=== PATIENT | female | born 1935 | race Caucasian/White ===

== ENCOUNTER → 2023-09-18 09:57 | Outpatient (REF) | payer MEDICARE, SELFPAY ==
[2023-09-18 10:14] LABS: % Basophils 0.4 % (0-2); % Eosinophils 1.9 % (0-6); % Immature Granulocytes 0.4 % (0-0.5); % Lymphocytes 21.4 % (20.5-51.1); % Monocytes 10.6 % (1.7-9.3); % Neutrophils 65.3 % (42.2-75.2); Absolute Eosinophils 0.1 10^3/uL (0-0.7); Absolute Lymphocytes 1.4 10^3/uL (1.2-3.4); Absolute Monocytes 0.7 10^3/uL (0.1-0.6); Absolute Neutrophils 4.4 10^3/uL (1.4-6.5); Hematocrit 33.5 % (37.0-47.0); Hemoglobin 10.8 g/dL (12.0-16.0); Mean Corp Hgb Conc. 32.2 g/dL (33.0-37.0); Mean Corpuscular Volume 96.3 fL (81.0-99.0); Mean Platelet Volume 9.6 fL (7.4-10.4); Platelet Count 197 10^3/uL (130-400); Red Blood Cell Count 3.48 10^6/uL (4.20-5.40); Red Cell Dist. Width 16.4 % (11.5-14.5); White Blood Cell Count 6.7 10^3/uL (4.8-10.8)
[2023-09-18 10:59] LABS: ALT (SGPT) 15 U/L (0-35); AST (SGOT) 20 U/L (14-36); Albumin 3.5 g/dl (3.5-5.0); Alkaline Phosphatase 35 U/L (38-126); Blood Urea Nitrogen 13 mg/dl (7-17); Calcium 9.2 mg/dl (8.4-10.2); Carbon Dioxide 32 mmol/L (22-30); Chloride 103 mmol/L (98-107); Glucose 126 mg/dl (70-99); Potassium 4.2 mmol/L (3.5-5.1); Sodium 136 mmol/L (135-145); Total Bilirubin 0.5 mg/dl (0.2-1.3); Total Protein 6.9 g/dl (6.3-8.2); eGFR > 60.00
[2023-09-19 14:09] LABS: Beta-2-Microglobulin 2.7 mg/L (<=3.0)
[2023-09-21 09:54] LABS: Albumin 3.76 g/dL (3.75-5.01); Alpha 1 Globulin 0.25 g/dL (0.19-0.46); Alpha 2 Globulin 0.68 g/dL (0.48-1.05); Free Kappa Light Chains,Quant 28.11 mg/L (3.30-19.40); Free Lambda Light Chains,Quant 4.28 mg/L (5.71-26.30); IgA 9 mg/dL (68-408); IgG 2001 mg/dL (768-1632); IgM <10 mg/dL (35-263); Immunofixation Electrophoresis IFE Done; Kappa/Lambda Fr Light Ratio 6.57 (0.26-1.65); Monoclonal Protein 1.88 g/dL (<=0.00); Total Protein-Electrophoresis 7.2 g/dL (6.3-8.2)
== END ==
LOC: OIDL 09:57
PROVIDERS: ATTENDING PHYSICIAN Internal Medicine Hematology & Oncology
DX: D64.9 Anemia, unspecified (principal)
CPT/HCPCS: 36415; 80053; 82232; 82784; 83521; 84155; 84165; 85025; 86334

== ENCOUNTER → 2023-10-03 15:21 | Outpatient (REF) | payer MEDICARE, SELFPAY | LOC: RAD 15:21 | PROVIDERS: ATTENDING PHYSICIAN Nurse Practitioner Family; FAMILY PHYSICIAN Physician Assistant Medical | DX: D64.9 Anemia, unspecified (principal); I82.401 Acute embolism and thrombosis of unspecified deep veins of right lower extremity; M80.00XA Age-related osteoporosis with current pathological fracture, unspecified site, initial encounter for fracture; C90.00 Multiple myeloma not having achieved remission | CPT/HCPCS: 71046 ==

== ENCOUNTER 2023-10-05 22:58 | Inpatient (IN) | payer MEDICARE, SELFPAY ==
[2023-10-05 20:48] VITALS: BP 120/70
[2023-10-05 21:02] VITALS: BP 152/75
[2023-10-05 21:21] LABS: % Basophils 0.2 % (0-2); % Immature Granulocytes 0.9 % (0-0.5); % Lymphocytes 2.6 % (20.5-51.1); % Monocytes 2.2 % (1.7-9.3); % Neutrophils 94.1 % (42.2-75.2); Absolute Immature Granulocytes 0.1 10^3/uL (0-0.05); Absolute Lymphocytes 0.4 10^3/uL (1.2-3.4); Absolute Monocytes 0.3 10^3/uL (0.1-0.6); Absolute Neutrophils 14.7 10^3/uL (1.4-6.5); Hematocrit 30.4 % (37.0-47.0); Hemoglobin 10.1 g/dL (12.0-16.0); Mean Corp Hgb Conc. 33.2 g/dL (33.0-37.0); Mean Corpuscular Hgb 30.4 pg (27.0-31.0); Mean Corpuscular Volume 91.6 fL (81.0-99.0); Mean Platelet Volume 10.2 fL (7.4-10.4); Nucleated Red Blood Cells % 0 %; Platelet Count 164 10^3/uL (130-400); Red Blood Cell Count 3.32 10^6/uL (4.20-5.40); Red Cell Dist. Width 15.8 % (11.5-14.5); White Blood Cell Count 15.6 10^3/uL (4.8-10.8)
--- NOTE | 2023-10-05 21:27 | ED.GENMED ---
History of Present Illness
General
Chief Complaint: Breathing Problem
Source: patient, records and family
Exam Limitations: none
Time Seen by Provider: 10/05/23 21:06
Nursing documentation reviewed up to this point in time: agreed with
Travel History
Have you had any contact with someone who has COVID-19?: No
Do you have any symptoms of coronavirus? Fever > 100 degrees, chills, cough, shortness of breath, sore throat, loss of taste or smell, muscle aches, or headache?: No
History of Present Illness
History of Present Illness:
88-year-old female history of multiple myeloma followed by [facility] COPD followed by pulmonary, DVT on Eliquis, presents with fatigue cough shortness of breath subacute onset had outpatient chest x-ray earlier in the week, not started
any antibiotics appears that the patient was not using her inhalers as prescribed, though she was compliant with her other meds feels generally fatigued with bodyaches, no nausea or vomiting no chest pain, noted to be hypoxic here which is a new
finding for her not on chronic oxygen
Past History
Past History
ED Past Medical History: Cancer, COPD, HTN, Hypercholesterolemia, NIDDM and Other (COPD, multiple myeloma)
ED Past Surgical History: Orthopedic and Other
Social History
Tobacco: Former smoker
Alcohol: None
Drug: None
Living: with family
Employment: Retired
Review of Systems
Review of Systems
All Other Systems: Not applicable
Constitutional: Reports fatigue; Denies fever
EENT: Reports no symptoms
Respiratory: Reports cough and trouble breathing; Denies hemoptysis
Cardiac: Reports no symptoms
ABD/GI: Reports no symptoms
: Reports no symptoms
Musculoskeletal: Reports no symptoms
Skin: Reports no symptoms
Neurological: Reports weakness
Endocrine: Reports no symptoms
Phy Exam
Physical Exam
Physical Exam:
Physical Exam
General: Dyspneic appearing female hypoxic
Neck: s no jaundice
Heart: Tachycardic
Lungs: Crackles on the left rhonchi on the right
Abdomen: Nontender
Neuro: alert and oriented. no focal neurological deficits
Skin: no rash
Psychiatric: well kept. interactive and cooperative
Extremities: no edema. no calf tenderness.
Scores
Heart Failure Risk
Heart Failure Risk Score: Not Applicable
Course
Orders/Labs/Results
Orders:
Orders
10/05/23 21:04
EKG [Electrocardiogram (*1)] Urgent
Reason for Study: Shortness of Breath
EKG- Treatment ONCE
10/05/23 21:06
CR Chest Portable - 1 View Urgent
Comment:
Reason For Exam: sob
Reason Study Needs to be Portable: Patient Unstable
10/05/23 21:13
Complete Blood Count/With Diff Urgent
Comprehensive Metabolic Panel Urgent
Prothrombin Time Urgent
Troponin I Urgent
10/05/23 21:24
Dexamethasone Sod Phosphate [Decadron] 10 mg IV NOW STA
Ipratropium/Albuterol Sulfate [Duoneb] 3 ml INH R NOW STA
10/05/23 21:30
Lactic Acid Q4H
Comment: CANCEL 2nd LACTIC ACID IF 1st LACTIC ACID IS LESS THAN 2
Blood Culture Q30M
RUDI Source: Blood/Venous
Specimen Description:
10/05/23 21:42
Piperacillin/Tazo 3.375 Gram [Zosyn] 3.375 gram in 50 ml IV NOW
10/05/23 22:00
Blood Culture Q30M
RUDI Source: Blood/Venous
Specimen Description:
10/06/23 01:30
Lactic Acid Q4H
Comment: CANCEL 2nd LACTIC ACID IF 1st LACTIC ACID IS LESS THAN 2
Abnormal Lab Results
10/05/23
21:13
WBC 15.6 H 10^3/uL
(4.8-10.8)
RBC 3.32 L 10^6/uL
(4.20-5.40)
Hgb 10.1 L g/dL
(12.0-16.0)
Hct 30.4 L %
(37.0-47.0)
RDW 15.8 H %
(11.5-14.5)
PT 19.8 H Sec
(11.4-14.6)
Sodium 125 L mmol/L
(135-145)
Chloride 90 L mmol/L
(98-107)
BUN 21 H mg/dl
(7-17)
Creatinine 0.5 L mg/dL
(0.6-1.0)
Glucose 178 H mg/dl
(70-99)
Alkaline Phosphatase 28 L U/L
(38-126)
Albumin 3.2 L g/dl
(3.5-5.0)
10/05/23 21:13
10/05/23 21:13
Vital Signs
Initial and Last Documented VS:
Initial Vital Signs
Pulse Resp BP Pulse Ox
107 24 120/70 84
10/05/23 20:48 10/05/23 20:48 10/05/23 20:48 10/05/23 20:48
Last Documented Vital Signs
Temp Pulse Resp BP Pulse Ox
98.7 F 107 24 120/70 92
10/05/23 21:03 10/05/23 20:48 10/05/23 20:48 10/05/23 20:48 10/05/23 21:05
MDM/Problems Addressed
Differential Diagnosis Includes:
Pneumonia pleural effusion heart failure PE disease progression
MDM/Problems Addressed:
Shortness of breath
Chronic conditions affecting care:
DVT
Chronic conditions affecting care: DM, COPD and Cancer
Acute Exacerbation and/or Progression of Chronic Illness: DM, COPD and Cancer
*Radiology
Radiology exam reviewed: radiology read reviewed
*Pulse Oximetry
Patient hypoxic: yes
*EKG
Interpreted by ED Provider?: Yes
Interpretation: abnormal
Comparison EKG: no comparison EKG present
Heart Rate: 78
Rate: normal
Rhythm: sinus
Ischemia: non-specific ST changes
*Addiction Psychiatrist Interpretation
Rate: normal
Interpretation: normal
Heart Rate: 78
Rhythm: sinus
*Critical Care Note
Total Time (30-74mins, 75-104mins- exclusive of procedures): 30
Data Reviewed
Review of Other/Old Records Reveals: Radiology Studies
Source: patient and family
Update Note
Update Note:
9:45 PM labs noted chest x-ray noted report noted will start on antibiotics, will require admission due to age severity of illness hypoxia worsening symptoms
ED Attending Note
-
Portions of this chart may have been created with voice recognition software.� Occasional wrong word or��sound alike� substitutions may have occurred due to the inherent limitations of voice recognition software.
Discharge Plan
Departure
Patient Disposition: Admit
Date of Disposition: 10/05/23
Time of Disposition: 21:43
Presentation/result/management discussed w/ accepting MD/DO: Hospitalist
Patient with high blood pressure during this ER visit?: No
Condition: Fair
Discharge Problem:
COPD (chronic obstructive pulmonary disease), Pneumonia
Prescriptions:
No Action
metformin 500 MG tablet
500 mg PO BID
anastrozole 1 MG tablet
1 mg PO HS
atorvastatin [Lipitor] 10 MG tablet
10 mg PO HS
cyanocobalamin (vitamin B-12) 1,000 MCG tablet
1,000 mcg PO SUTUTHSA
Trelegy Ellipta 1 EACH blister with device
1 ea IH DAILY
fish oil-dha-epa 1 EACH capsule
2 capsules PO DAILY
irbesartan 300 MG tablet
300 mg PO QPM Qty: 30 0RF
furosemide 20 MG tablet
20 mg PO DAILY Qty: 30 0RF
Rx Instructions:
take in AM
ibandronate 150 mg Tablet
150 mg PO QMONTH
Eliquis 5 mg Tablet
5 mg PO BID
metoprolol succinate 100 mg Capsule,Sprinkle,Er 24hr
100 mg PO DAILY
ICaps AREDS2 250 mg-200 unit -12.5 mg-1 mg Capsule
1 cap PO DAILY
albuterol sulfate 90 mcg/actuation Aero Powdr Breath Act W/Sensor
90 mcg INHALATION Q4H PRN (Reason: sob/wheezing)
PreserVision AREDS-2 250-90-40-1 mg Capsule
1 tab PO BID
acyclovir 400 mg Tablet
400 mg PO BID
dexamethasone 2 mg Tablet
10 mg PO .SUNDAY
iron
65 mg PO DAILY
Interventions
Interventions:
*Risk Screen - Suicide Last Done: 10/05/23 20:48
*General Assessment Last Done: 10/05/23 20:48
*Neglect/Abuse Screening Last Done: 10/05/23 21:05
*ED COVID-19 Vaccine History Last Done: 10/05/23 21:05
ED- Cardiac Assessment Last Done: 10/05/23 21:05
ED- Pulmonary Assessment Last Done: 10/05/23 21:05
Discharge Date and Time
Print Language: WELSH
[2023-10-05 21:29] LABS: PT 19.8 Sec (11.4-14.6)
[2023-10-05] MEDS: DECADRON 10 MG IV (21:34)
[2023-10-05] MEDS: DUONEB 3 ML INH (21:34)
[2023-10-05 21:36] LABS: ALT (SGPT) 14 U/L (0-35); AST (SGOT) 33 U/L (14-36); Albumin 3.2 g/dl (3.5-5.0); Alkaline Phosphatase 28 U/L (38-126); Blood Urea Nitrogen 21 mg/dl (7-17); Calcium 9.9 mg/dl (8.4-10.2); Carbon Dioxide 27 mmol/L (22-30); Chloride 90 mmol/L (98-107); Glucose 178 mg/dl (70-99); Potassium 3.8 mmol/L (3.5-5.1); Sodium 125 mmol/L (135-145); Total Bilirubin 1.2 mg/dl (0.2-1.3); Total Protein 6.6 g/dl (6.3-8.2); eGFR > 60.00
[2023-10-05 21:44] LABS: Troponin I 0.027 ng/ml
[2023-10-05] MEDS: ZOSYN 50 IV (21:49)
--- NOTE | 2023-10-05 21:52 | HPS.HSE ---
Family Physician
-
Family Physician: Ivana Clarke
Chief Complaint
-
Fatigue, cough, shortness of breath
History of Present Illness
88-year-old female complaining of fatigue, cough, shortness of breath for the past 3 days with pressure-like headache chills on and off. She reports having a chest x-ray on 10/03/2023 after her chemotherapy for multiple myeloma. She did not start
any antibiotics. Her symptoms became worse. She was noted to be hypoxic in the ER on room air. She has a history of multiple myeloma is followed by [facility], COPD, ASHLEY on CPAP, DVT on Eliquis, ex-smoker, sleep apnea on CPAP, HTN,
HLD, DM 2, breast cancer right breast with lumpectomy, Hx multiple myeloma, osteoarthritis, macular degeneration chronic back pain
Medical History
Past Medical History
Past Medical History: Reports Other
Additional Past Medical History:
COPD
ex-smoker
sleep apnea on CPAP
HTN
HLD
DM 2
breast cancer right breast with lumpectomy
Hx multiple myeloma Dx August 2022 on current chemotherapy follows with [facility]
osteoarthritis
macular degeneration
chronic back pain
Past Surgical History: Reports Other
Additional Past Surgical History:
Right lumpectomy 2018
Cataract extraction 2018
Left leg surgery x 3 secondary to trauma
Cyst removal left toe
Tonsillectomy
Left total hip replacement
Abdominal cyst removal 05/18/2021
Social History
Tobacco: Former Smoker (30 years half a pack a day unsure when patient quit)
Alcohol: Occasional
Personal: Single
Living: With Family
Employment: Retired
Family History
Family History: Other (Mother history of breast cancer CAD father unsure)
Allergies / Home Medications
Allergies reflects when Allergies were last updated in [facility].
Home Medications with original date entered in [facility]
Allergy/Medication List:
Allergies
Allergy/AdvReac Type Severity Reaction Status Date / Time
No Known Allergies Allergy Verified 10/05/23 20:48
Home Medications
anastrozole 1 mg tablet 1 mg PO HS Cancer 01/07/21
atorvastatin 10 mg tablet (Lipitor) 10 mg PO HS High cholesterol 01/07/21
metformin 500 mg tablet 500 mg PO BID Diabetes 01/07/21
cyanocobalamin (vitamin B-12) 1,000 mcg tablet 1,000 mcg PO SUTUTHSA Supplement 01/18/21
fish oil-dha-epa 1,200 mg-144 mg-216 mg capsule 2 capsules PO DAILY Supplement 09/18/21
fluticasone fur. 100 mcg-umeclid 62.5 mcg-vilant 25 mcg inhalat.powder (Trelegy Ellipta) 1 ea IH DAILY Lung/breathing issues 09/18/21
furosemide 20 mg tablet 20 mg PO DAILY #30 tabs 09/20/21
irbesartan 300 mg tablet 300 mg PO QPM #30 tabs 09/20/21
albuterol sulfate 90 mcg/actuation breath activated powder inhaler,sensor 90 mcg inhalation Q4H PRN sob/wheezing 03/01/23
apixaban 5 mg tablet (Eliquis) 5 mg PO BID 03/01/23
ibandronate 150 mg tablet 150 mg PO QMONTH 03/01/23
metoprolol succinate 100 mg capsule sprinkle, ext. release 24 hr 100 mg PO DAILY 03/01/23
vit C 250 mg-vit E 200 unit-zinc ox 12.5 dd-qbwyoz-grdudw-zeax capsule (ICaps AREDS2) 1 cap PO DAILY 03/01/23
vit C 250 mg-vit E 90 mg-zinc 40 mg-copper 1 xa-rhhdjp-bwxxiy capsule (PreserVision AREDS-2) 1 tab PO BID 03/02/23
acyclovir 400 mg tablet 400 mg PO BID 04/13/23
dexamethasone 2 mg tablet 10 mg PO .Sunday04/13/23
iron 65 mg PO DAILY 04/13/23
Calcium 600 with Vitamin D2 1 tab PO DAILY 10/05/23
Vitamin D3 5,000 units PO DAILY 10/05/23
bortezomib 3.5 mg injection powder for solution (Velcade) 3 mg IV QWEEK 10/05/23
denosumab 120 mg/1.7 mL (70 mg/mL) subcutaneous solution (Xgeva) 120 mg SC Q4W 10/05/23
Review of Systems
-
History Source: Patient and Family (Daughter and granddaughter at bedside)
A 12 point ROS was completed and negative except as noted: Yes
Constitutional: Reports Fatigue and Chills; Denies Fever
EENT: Denies Sore Throat or Runny Nose
Respiratory: Reports Cough and Trouble Breathing; Denies Hemoptysis
Cardiac: Denies Chest Pain, Diaphoresis, Palpitations or Syncope
Abdomen/GI: Denies Abdominal Pain, Nausea, Vomiting, Diarrhea or Constipated
: Denies Dysuria, Frequency, Flank Pain, Incontinence or Difficulty Voiding
Musculoskeletal: Denies Joint Pain or Edema
Skin: Denies Itching or Rash
Neurological: Reports Headache; Denies Dizzy or Weakness
Endocrine: Reports No Symptoms
Hematologic/Lymphatic: Reports No Symptoms
Psych: Reports Calm
Physical Exam
Vital Signs
Vital Signs
Temp Pulse Resp BP Pulse Ox
98.7 F 107 24 120/70 92
10/05/23 21:03 10/05/23 20:48 10/05/23 20:48 10/05/23 20:48 10/05/23 21:05
Physical Exam
General: Comfortable and Conversant; No Fever or Chills
HEENT: NormoCephalic, Anicteric, PERRLA, Grover Conjunctivae, No Ptosis and Oxygen (4 L nasal cannula)
Respiratory: Rhonchi (Left lower base to left mid lung, right CTA); No Wheezes
Cardiac: S1/S2 and Regular Rhythm; No Murmur, Rub, Gallop or Peripheral Edema
Breast: Deferred by me
GI: Soft, Non Tender, Non Distended and No Hepatosplenomegaly
Rectal: Deferred by Provider
Genito-urinary: Deferred by me
Musculoskeletal: No Clubbing, No Cyanosis and No Edema
Skin: Warm and Dry; No Rash or Jaundice
Neuro: AO x 3, No Motor Deficits, Nonfocal/grossly intact, Cranial Nerves Intact and No Sensory Deficits; No Slurred Speech or Facial Droop
Psych: Calm
Laboratory Results
-
10/05/23 21:13
10/05/23 21:13
Laboratory Results
PT 19.8 Sec (11.4-14.6) H 10/05/23 21:13
INR 1.70 10/05/23 21:13
Total Bilirubin 1.2 mg/dl (0.2-1.3) 10/05/23 21:13
AST 33 U/L (14-36) 10/05/23 21:13
ALT 14 U/L (0-35) 10/05/23 21:13
Alkaline Phosphatase 28 U/L (38-126) L 10/05/23 21:13
Troponin I 0.027 ng/ml 10/05/23 21:13
Data Reviewed
-
Diagnostic Radiology: Report Reviewed by me
Lab Data: Labs Reviewed by me
Impression/Plan
-
Impression/plan:
Admit to MedSurg
#Acute hypoxic respiratory insufficiency 2/2 left midlung pneumonia
84% RA, 92% 4 L nasal cannula
WBC 15.6 with left shift, HR 107, 98.7, 120/70
-Check influenza/COVID swab
-Continue Trelegy Ellipta or equivalent
-DuoNebs scheduled and as needed
-IV Zosyn
-Follow CBC, CMP, Pro-Petey
CXR: Opacity in the left midlung could represent pneumonia/pneumonitis
#COPD-no acute exacerbation
# Former smoker
1/2 pack a day x 30 years
#Hyponatremia hypovolemic
NA 125
-Check TSH with free T4 reflex
-Urine NA, urine Osmo, serum Osmo
-IV NSS 1 L then fluid restrict 1.2 L daily
#Multiple myeloma on current chemo Dx August 2022
#Anemia normocytic/chronic
Hgb 10.1, RBC 3.32, PLT 164
Follows with [facility]
Patient on chemo Velcade once a week last dose 10/03/2023
#DVT left leg hx July 2022
-Continue Eliquis 5 mg twice daily
INR 1.7
#ASHLEY on CPAP nasal
Patient unsure setting
#HTN-benign
120/70
-Continue irbesartan 300 mg every afternoon, metoprolol succinate 100 mg daily
-Hold Lasix 20 mg daily
#HLD
-Continue Lipitor 10 mg at bedtime
#DM2
-Accu-Cheks with SSI, check HgbA1c
-Hold metformin 500 mg twice daily
#Right breast CA with lumpectomy
-Continue anastrozole 1 mg p.o. at bedtime
#Osteoporosis Hx
Patient is on ibandronate 150 mg p.o. monthly on the
Continue calcium 600 vitamin D, continue vitamin D3
-Patient on Xgeva/denosumab once a month
DVT prophylaxis
Continue UNDERCOVER COP Eliquis
Full code
[2023-10-05 22:00] VITALS: BP 131/60
[2023-10-05 22:01] LABS: Lactic Acid 1.5 mmol/L (0.7-2.0)
--- NOTE | 2023-10-05 22:06 | W.PN.UPDATE ---
Addendum entered and electronically signed by Rogerio Miles MD 10/06/23 13:32:
Laboratory Tests
10/05/23
21:13
Procalcitonin 9.24 H*
Addendum entered and electronically signed by Rogerio Miles MD 10/05/23 22:33:
Correction:
Probably PNA @ lt mid to lower Lung
Associated with acute hypoxic RI and Leucocytosis
COPD HX : clinically not bronchospastic
- Agree with empiric IV Zosyn
<del>-</del> <del>Empiric</del> <del>PO</del> <del>Prednisone</del> <del>with</del> <del>rapid</del> <del>tapering</del> <del>course</del>
- DuoNebs qi and PRN
- O2 supplement - Goal POx > 93 %
- cont. all OP Meds for COPD
- pending PCT
Original Note:
Update Note
Progress Note Update
This note serves as an addendum to the H&P by emergency department VERONICA Hilda CISNEROS
HPI
88M HX COPD, Multiple myeloma, HTN, DVT on Eliquis seen at ER for evaluation of SoB for 1 week. Noted OP evaluation with CXR but not yet started on ABx. POx was 84% on RA, improved to low 90s on 4 L NC O2.
She recently had Velcade on 10/03/23Sunday ago for myeloma with [facility].
Admission CXR POS for Opacity in the left mid to lower lung which is new from 10/03/23
Associated Leucocytosis.
Pending PCT.
ROS:
Feverish but no documented fevr at home
Dry cough . No sputum production
Fatigue
Myalgias
PMHX
Cancer, COPD, HTN, Hypercholesterolemia, NIDDM and Other (COPD, multiple myeloma)
PSHx
Orthopedic and Other
Social History
Tobacco: Former smoker
Alcohol: None
Drug: None
Living: with family
Employment: Retired
Medications : Pending reconciliation
1. Anastrozole [Arimidex:] 1 mg PO HS 01/07/21.
2. Atorvastatin Calcium [Lipitor] 10 mg PO HS 01/07/21.
3. Metformin HCl 500 mg PO BID 01/07/21.
4. Vitamin D3 5,000 unit PO SUTUTHSA 01/07/21.
5. Vit A/Vit C/Vit E/Zinc/Copper [Preservision AREDS Softgel] 1
cap PO BID 01/11/21.
6. Cyanocobalamin [Vitamin B12:] 1,000 mcg PO DAILY 01/18/21.
7. Fish Oil/DHA/Epa [Fish Oil 1,200 mg Fish Oil] 2 capsules PO
DAILY 09/18/21.
8. Fluticasone/Umeclidin/Vilanter [Trelegy Ellipta 100-62.5-25] 1
each IH DAILY 09/18/21.
9. Metoprolol Succinate [Toprol Xl] 100 mg PO HS 09/18/21.
10.Acetaminophen [Tylenol :] 650 mg PO Q4HPRN PRN tablet
09/20/21.
11.Furosemide [Lasix:] 20 mg PO DAILY #30 tablet 09/20/21.
12.Irbesartan [Avapro:] 300 mg PO QPM #30 tablet 09/20/21.
13.Tramadol HCl [Ultram:] 50 mg PO Q6HPRN PRN #20 tablet 09/20/21.
Reviewed VS: afebrile ST 107 120/70 84% on RA --> 92% on 4 L NC
PE
Gen: Not toxic
HEENT: anicteric
Neck: supple
Lungs:Crackles on the left plus rhonchi on the right
Cor: tachycardic, S1 S2 , no murmur
Abdomen: soft benign exam
RN INTERNAL MEDICINE: alert and oriented. no focal neurological deficits
MS: no edema
Psych:well kept. Interactive and appropriate
Data
WCC 15.6
Hgb 10.8 - baseline 9s to 10s
INR 1.7
Na 125 - baseline 130
Cl 90
BUN 21
Cr 0.5
Pending Covid and Flu A & B
Pending LA
Pending PCT
BCx sent
10/05/23 CXR
Opacity in the left mid to lower lung which could represent pneumonia/pneumonitis most likely without significant change.
10/03/23 CXR
Some prominent pulmonary markings, predominantly interstitial noted which although may be chronic, these markings are more prominent in the left mid to lower lung and superimposed pneumonitis is possible.
Unfortunately, there are no prior chest radiographs in this facility for comparison.
Last hospitalist admission: 09/18/21 - 09/20/21
ASSESSMENT & PLAN
Pending Rx reconciliation
Probably PNA @ lt mid to lower Lung
Associated with acute hypoxic RI and Leucocytosis
COPD HX with mild flare
- Agree with empiric IV Zosyn
- Empiric PO Prednisone with rapid tapering course
- DuoNebs qi and PRN
- O2 supplement - Goal POx > 93 %
- cont. all OP Meds for COPD
- pending PCT
Acute hyponatremia
Suspect mildly hypovolemic due to dehydration
HX Hyponatremia
- likely a combination of SIADH plus poor oral intake, as well as Diuretics ( Frusemide ? )
- Gentle NS 40/H for 1 L
- FR 1.2 L
- Held Diuretics
- Trend Na in AM
Essential hypertension.
- Held Lasix
- f/u Na in AM
HX DVT on chr eliquis
HX Multiple myeloma on Anastrazole
HX T2DM: held Metformin, add ISS low
DVT Px: chr Eliquis
Code: Full
IP MS
[2023-10-05 22:33] LABS: COVID-19 Antigen Negative (Negative)
[2023-10-05 22:39] LABS: Procalcitonin 9.24 ng/ml (0.0-0.25)
[2023-10-05 23:00] VITALS: BP 123/65
[2023-10-06] VITALS (8 sets, daily range): BP systolic 128–144; BP diastolic 49–73; PULSE 67; O2SAT 91; BMI 28.5; BMI 27.4
[2023-10-06] MEDS: NSS 1000 IV (01:39)
--- NOTE | 2023-10-06 01:52 | PTCARENOTE ---
Pt admitted to floor from ED. AAOx3. VSS. 936-96% o 4L. Pt with no c/o. Oriented to room. Call soni within reach.
[2023-10-06] MEDS: ZOSYN 50 IV ×4 (05:18→22:08)
[2023-10-06 06:02] LABS: % Basophils 0.5 % (0-2); % Eosinophils 0.4 % (0-6); % Immature Granulocytes 1.8 % (0-0.5); % Lymphocytes 2.2 % (20.5-51.1); % Monocytes 1.8 % (1.7-9.3); % Neutrophils 93.3 % (42.2-75.2); Absolute Basophils 0.1 10^3/uL (0-0.2); Absolute Eosinophils 0.1 10^3/uL (0-0.7); Absolute Immature Granulocytes 0.3 10^3/uL (0-0.05); Absolute Lymphocytes 0.4 10^3/uL (1.2-3.4); Absolute Monocytes 0.3 10^3/uL (0.1-0.6); Absolute Neutrophils 15.9 10^3/uL (1.4-6.5); Hematocrit 26.8 % (37.0-47.0); Hemoglobin 9.3 g/dL (12.0-16.0); Mean Corp Hgb Conc. 34.7 g/dL (33.0-37.0); Mean Corpuscular Hgb 30.8 pg (27.0-31.0); Mean Corpuscular Volume 88.7 fL (81.0-99.0); Mean Platelet Volume 10.3 fL (7.4-10.4); Nucleated Red Blood Cells % 0 %; Platelet Count 149 10^3/uL (130-400); Red Blood Cell Count 3.02 10^6/uL (4.20-5.40)
[2023-10-06 06:11] LABS: Osmolality Serum 281 mOsm/kg (275-300)
[2023-10-06 06:18] LABS: ALT (SGPT) 12 U/L (0-35); AST (SGOT) 25 U/L (14-36); Albumin 2.8 g/dl (3.5-5.0); Alkaline Phosphatase 33 U/L (38-126); Blood Urea Nitrogen 20 mg/dl (7-17); Calcium 9.7 mg/dl (8.4-10.2); Carbon Dioxide 26 mmol/L (22-30); Chloride 97 mmol/L (98-107); Estimated Creatinine Clearance 59 ml/min; Glucose 219 mg/dl (70-99); Potassium 3.7 mmol/L (3.5-5.1); Sodium 131 mmol/L (135-145); Total Bilirubin 0.9 mg/dl (0.2-1.3); Total Protein 5.9 g/dl (6.3-8.2); eGFR > 60.00
[2023-10-06 07:22] LABS: Free T4 1.49 ng/dl (0.78-2.19)
[2023-10-06] MEDS: SYMBICORT 80/4.5 MCG INHALER 2 PUFF INH ×2 (07:35→20:09)
[2023-10-06] MEDS: SPIRIVA RESPIMAT 2.5 MCG 2 PUFF INH ×2 (07:35→20:08)
--- NOTE | 2023-10-06 07:59 | W.PN.HOSP.TC ---
Today's Communication/Plan
-
IV antibiotics. Oxygen supplementation.
Assessment / Plan
Assessment / Plan
Physical exam:
General: Acutely ill
HEENT: Normocephalic, Atraumatic and Moist Mucous Membranes
Respiratory: Left fine crackles; Negative Wheezes, Rales or Rhonchi
Cardiac: Regular Rhythm and S1/S2
GI: Soft, Nontender and Nondistended
Musculoskeletal: No Clubbing, No Cyanosis and No Edema
Neuro: Awake, Alert and Oriented
Psych: Calm
A/P:
#Acute hypoxic respiratory insufficiency 2/2 left midlung pneumonia
84% RA, 92% 4 L nasal cannula
WBC 15.6 with left shift, HR 107, 98.7, 120/70--> WBC 17 (she does have a pneumonia but received steroids in the ED yesterday)
-Check influenza/COVID swab and negative.
-Continue Trelegy Ellipta or equivalent
-DuoNebs scheduled and as needed
-IV Zosyn
-Follow CBC, CMP, Pro-Petey--> WBC 17 has received steroids, renal function and electrolytes stable but mild hyponatremia, blood sugar elevated continue insulin adjustment as needed, procal elevated at 9.24
CXR: Opacity in the left midlung could represent pneumonia/pneumonitis
Continue oxygen supplementation and titrate down as able. Still on 4 L of oxygen but pulse ox much better around 95 to 97%.
#COPD-no acute exacerbation
# Former smoker
1/2 pack a day x 30 years
No need for systemic steroids at the moment but continue to monitor.
#Hyponatremia hypovolemic
NA 125--> up to 131 today
-Check TSH with free T4 reflex--> TSH 0.30 but normal free T4 1.49
-Urine NA, urine Osmo, serum Osmo--> urine sodium 44, urine osmolality 458
-IV NSS 1 L then fluid restrict 1.2 L daily
-Start fluid restriction today
#Multiple myeloma on current chemo Dx August 2022
#Anemia normocytic/chronic
Hgb 10.1, RBC 3.32, PLT 164-->Hemoglobin 9.3, platelet count 149 today
Follows with [facility]
Patient on chemo Velcade once a week last dose 10/03/2023
#DVT left leg hx July 2022
-Continue Eliquis 5 mg twice daily
INR 1.7
#ASHLEY on CPAP nasal
Patient unsure setting
#HTN-benign
Blood pressure stable
-Continue irbesartan 300 mg every afternoon, metoprolol succinate 100 mg daily
-Hold Lasix 20 mg daily
#HLD
-Continue Lipitor 10 mg at bedtime
#DM2
-Accu-Cheks with SSI--> increase sliding scale to moderate resistance today, check HgbA1c--> 6.9
-Hold metformin 500 mg twice daily
#Right breast CA with lumpectomy
-Continue anastrozole 1 mg p.o. at bedtime
#Osteoporosis Hx
Patient is on ibandronate 150 mg p.o. monthly on the
Continue calcium 600 vitamin D, continue vitamin D3
-Patient on Xgeva/denosumab once a month
DVT prophylaxis
Continue [employer] Eliquis
Full code
Total time spent on today's encounter was 52 minutes which included time spent in counseling the patient/family regarding diagnosis and treatment plan as listed above, goals of care, and symptom management. Case was discussed with nursing staff,
specialists, and care coordinators/case management. All labs and imaging personally reviewed by me. Remainder the time spent in detailed review of previous records, lab data, imaging, and other medical provider documentation.
Anticipated Discharge: > 48 hours
Subjective/Interval History
-
Date of Service: October 06, 2023
Patient feels better overall. Still on supplemental oxygen, 4 L. No chest pain. Afebrile
Objective Data
-
Labs:
Laboratory Results
10/05/23 10/06/23
21:13 05:27
WBC 15.6 H 17.0 H
Hgb 10.1 L 9.3 L
Hct 30.4 L 26.8 L
Plt Count 164 149
PT 19.8 H
INR 1.70
Sodium 125 L 131 L
Potassium 3.8 3.7
Chloride 90 L 97 L
Carbon Dioxide 27 26
BUN 21 H 20 H
Creatinine 0.5 L 0.6
Glucose 178 H 219 H
Calcium 9.9 9.7
Total Bilirubin 1.2 0.9
AST 33 25
ALT 14 12
Alkaline Phosphatase 28 L 33 L
Vital Signs:
Vital Signs
Temp Pulse Resp BP Pulse Ox
99.1 F 61 14 129/65 96
10/06/23 00:30 10/06/23 07:39 10/06/23 07:39 10/06/23 00:30 10/06/23 07:39
I&O
10/05/23 10/06/23 10/07/23
06:59 06:59 06:59
Intake Total 480 / 480
Balance 480 / 480
[2023-10-06 08:02] LABS: Glucose - Point of Care 246 mg/dl (70-99)
[2023-10-06 09:04] LABS: Glycohemoglobin (HgbA1c) 6.9 % (4.0-5.6)
[2023-10-06] MEDS: OSCAL 500 + D 500 MG PO (09:11)
[2023-10-06] MEDS: OCUVITE SOFTGEL 1 CAP PO ×2 (09:11→22:04)
[2023-10-06] MEDS: NOVOLOG FLEXPEN-LOW RESISTANCE 2 UNITS SC (09:11)
[2023-10-06] MEDS: ELIQUIS 5 MG PO ×2 (09:11→22:03)
[2023-10-06] MEDS: VITAMIN D3 (cholecalciferol) 125 MCG PO (09:12)
[2023-10-06] MEDS: TOPROL XL 100 MG PO (09:12)
[2023-10-06] MEDS: FEOSOL 325 MG PO (09:12)
[2023-10-06] MEDS: ZOVIRAX 400 MG PO ×2 (09:12→22:04)
[2023-10-06] MEDS: VITAMIN B-12 1000 MCG PO (09:14)
[2023-10-06 12:42] LABS: Glucose - Point of Care 280 mg/dl (70-99)
[2023-10-06] MEDS: NOVOLOG FLEXPEN-LOW RESISTANCE 3 UNITS SC (12:47)
--- NOTE | 2023-10-06 14:19 | CM ---
manager application development reviewed patient's chart and met with patient and patient lives with daughter in a split level patient is independent with adl's and uses a cane with ambulation, patient has a prescription plan and uses [facility] pharmacy.
PCP: Dr. Santillan
Plan; Home when stable.
[2023-10-06 16:45] LABS: Glucose - Point of Care 214 mg/dl (70-99)
[2023-10-06] MEDS: AVAPRO 300 MG PO (17:10)
[2023-10-06] MEDS: NOVOLOG FLEXPEN-MODERATE RESISTANCE 3 UNITS SC (17:11)
[2023-10-06 20:50] LABS: Osmolality Urine 394 mOsm/kg (300-900)
[2023-10-06 21:12] LABS: Urine Sodium 8 mmol/L (30-90)
[2023-10-06 21:36] LABS: Glucose - Point of Care 235 mg/dl (70-99)
[2023-10-06] MEDS: ARIMIDEX 1 MG PO (22:03)
[2023-10-06] MEDS: LIPITOR 10 MG PO (22:03)
[2023-10-07] MEDS: ZOSYN 50 IV ×4 (04:20→21:16)
[2023-10-07] MEDS: ZOFRAN 4 MG IV (05:47)
[2023-10-07 06:00] VITALS: BMI 28.2
[2023-10-07 07:20] VITALS: BP 165/84
[2023-10-07] MEDS: SPIRIVA RESPIMAT 2.5 MCG 2 PUFF INH ×2 (07:24→21:25)
[2023-10-07] MEDS: SYMBICORT 80/4.5 MCG INHALER 2 PUFF INH ×2 (07:25→21:25)
[2023-10-07 07:34] LABS: % Basophils 0.6 % (0-2); % Eosinophils 0.2 % (0-6); % Lymphocytes 3.8 % (20.5-51.1); % Monocytes 5.6 % (1.7-9.3); % Neutrophils 85.8 % (42.2-75.2); Absolute Basophils 0.1 10^3/uL (0-0.2); Absolute Immature Granulocytes 0.7 10^3/uL (0-0.05); Absolute Lymphocytes 0.6 10^3/uL (1.2-3.4); Absolute Monocytes 0.9 10^3/uL (0.1-0.6); Absolute Neutrophils 13.9 10^3/uL (1.4-6.5); Hematocrit 26.2 % (37.0-47.0); Hemoglobin 9.1 g/dL (12.0-16.0); Mean Corp Hgb Conc. 34.7 g/dL (33.0-37.0); Mean Corpuscular Hgb 30.6 pg (27.0-31.0); Mean Corpuscular Volume 88.2 fL (81.0-99.0); Nucleated Red Blood Cells % 0 %; Red Blood Cell Count 2.97 10^6/uL (4.20-5.40); Red Cell Dist. Width 15.8 % (11.5-14.5); White Blood Cell Count 16.2 10^3/uL (4.8-10.8)
[2023-10-07 08:01] LABS: ALT (SGPT) 15 U/L (0-35); AST (SGOT) 34 U/L (14-36); Albumin 2.7 g/dl (3.5-5.0); Alkaline Phosphatase 28 U/L (38-126); Blood Urea Nitrogen 24 mg/dl (7-17); Calcium 9.1 mg/dl (8.4-10.2); Carbon Dioxide 25 mmol/L (22-30); Chloride 101 mmol/L (98-107); Estimated Creatinine Clearance 59 ml/min; Glucose 154 mg/dl (70-99); Potassium 3.9 mmol/L (3.5-5.1); Sodium 133 mmol/L (135-145); Total Bilirubin 0.8 mg/dl (0.2-1.3); Total Protein 5.9 g/dl (6.3-8.2); eGFR > 60.00
[2023-10-07 08:02] LABS: Mean Platelet Volume 12.6 fL (7.4-10.4); Platelet Count 131 10^3/uL (130-400)
[2023-10-07 08:41] LABS: Glucose - Point of Care 185 mg/dl (70-99)
[2023-10-07] MEDS: NOVOLOG FLEXPEN-MODERATE RESISTANCE 1 UNITS SC ×3 (08:43→17:01)
[2023-10-07] MEDS: ZOVIRAX 400 MG PO ×2 (08:44→20:06)
[2023-10-07] MEDS: VITAMIN B-12 1000 MCG PO (08:44)
[2023-10-07] MEDS: OSCAL 500 + D 500 MG PO (08:44)
[2023-10-07] MEDS: ELIQUIS 5 MG PO ×2 (08:44→20:06)
[2023-10-07] MEDS: FEOSOL 325 MG PO (08:44)
[2023-10-07] MEDS: OCUVITE SOFTGEL 1 CAP PO ×2 (08:44→20:06)
[2023-10-07] MEDS: TOPROL XL 100 MG PO (08:44)
[2023-10-07] MEDS: VITAMIN D3 (cholecalciferol) 125 MCG PO (08:44)
--- NOTE | 2023-10-07 09:32 | W.PN.HOSP.TC ---
Today's Communication/Plan
-
Continue IV antibiotics. Oxygen supplementation and wean as able.
Assessment / Plan
Assessment / Plan
Physical exam:
General: Acutely ill
HEENT: Normocephalic, Atraumatic and Moist Mucous Membranes
Respiratory: Left fine crackles; Negative Wheezes, Rales or Rhonchi
Cardiac: Regular Rhythm and S1/S2
GI: Soft, Nontender and Nondistended
Musculoskeletal: No Clubbing, No Cyanosis and No Edema
Neuro: Awake, Alert and Oriented
Psych: Calm
A/P:
#Acute hypoxic respiratory insufficiency 2/2 left midlung pneumonia
Continue IV antibiotics, IV Zosyn
WBC 17--> 16.2 (despite use of steroids in the ED)
Wean oxygen as able. From 4 L upon admission down to 2 L today.
Seen and reviewed chest x-ray
Continue bronchodilators
Blood cultures no growth
Procal elevated at 9.24
COVID-19 and influenza negative
OT recommends home health
PT recommends home health versus no need
#COPD-no acute exacerbation
# Former smoker
1/2 pack a day x 30 years
No need for systemic steroids at the moment but continue to monitor.
#Hyponatremia hypovolemic
NA 125--> up to 133 today
-Check TSH with free T4 reflex--> TSH 0.30 but normal free T4 1.49. Recommend repeat in 6 weeks
-Urine NA, urine Osmo, serum Osmo--> urine sodium 44, urine osmolality 458
-IV NSS 1 L given.
-Cont fluid restriction
#Multiple myeloma on current chemo Dx August 2022
#Anemia normocytic/chronic
Hgb 10.1, RBC 3.32, PLT 164-->Hemoglobin 9.1, platelet count 131 today
Follows with [facility]
Patient on chemo Velcade once a week last dose 10/03/2023
#DVT left leg hx July 2022
-Continue Eliquis 5 mg twice daily
INR 1.7
#ASHLEY on CPAP nasal
Patient unsure setting
#HTN-benign
Blood pressure stable
-Continue irbesartan 300 mg every afternoon, metoprolol succinate 100 mg daily
-Hold Lasix 20 mg daily but can restart in the next day or 2.
#HLD
-Continue Lipitor 10 mg at bedtime
#DM2
-Accu-Cheks with SSI--> increased sliding scale to moderate resistance, check HgbA1c--> 6.9
-Restart metformin 500 mg twice daily
#Right breast CA with lumpectomy
-Continue anastrozole 1 mg p.o. at bedtime
#Osteoporosis Hx
Patient is on ibandronate 150 mg p.o. monthly on the
Continue calcium 600 vitamin D, continue vitamin D3
-Patient on Xgeva/denosumab once a month
DVT prophylaxis
Continue BAKER TEST Eliquis
Full code
Total time spent on today's encounter was 52 minutes which included time spent in counseling the patient/family regarding diagnosis and treatment plan as listed above, goals of care, and symptom management. Case was discussed with nursing staff,
specialists, and care coordinators/case management. All labs and imaging personally reviewed by me. Remainder the time spent in detailed review of previous records, lab data, imaging, and other medical provider documentation.
Anticipated Discharge: > 48 hours
Subjective/Interval History
-
Date of Service: October 07, 2023
Patient feels better overall. Less shortness of breath and less cough. Requires less oxygen today down to 2 L. Afebrile
Objective Data
-
Labs:
Laboratory Results
10/07/23
06:08
WBC 16.2 H
Hgb 9.1 L
Hct 26.2 L
Plt Count 131
Sodium 133 L
Potassium 3.9
Chloride 101
Carbon Dioxide 25
BUN 24 H
Creatinine 0.5 L
Glucose 154 H
Calcium 9.1
Total Bilirubin 0.8
AST 34
ALT 15
Alkaline Phosphatase 28 L
Vital Signs:
Vital Signs
Temp Pulse Resp BP Pulse Ox
97.8 F 64 16 165/84 94
10/07/23 07:20 10/07/23 07:28 10/07/23 07:28 10/07/23 07:20 10/07/23 09:18
I&O
10/06/23 10/07/23 10/08/23
06:59 06:59 06:59
Intake Total 480 / 480 960 / 960
Output Total 1100 / 1100
Balance 480 / 480 -140 / -140
[2023-10-07 12:31] LABS: Glucose - Point of Care 185 mg/dl (70-99)
[2023-10-07 16:10] VITALS: BP 137/83
[2023-10-07 16:51] LABS: Glucose - Point of Care 159 mg/dl (70-99)
[2023-10-07] MEDS: GLUCOPHAGE 500 MG PO (17:01)
[2023-10-07] MEDS: AVAPRO 300 MG PO (17:01)
[2023-10-07] MEDS: LIPITOR 10 MG PO (21:15)
[2023-10-07] MEDS: ARIMIDEX 1 MG PO (21:16)
[2023-10-07 21:35] LABS: Glucose - Point of Care 176 mg/dl (70-99)
[2023-10-07 23:34] VITALS: BP 123/61
[2023-10-08] MEDS: ZOSYN 50 IV ×2 (03:27→09:46)
[2023-10-08 06:00] VITALS: BMI 28.2
[2023-10-08 07:25] LABS: Glucose - Point of Care 157 mg/dl (70-99)
[2023-10-08 07:48] VITALS: BP 148/79
[2023-10-08 08:18] LABS: % Basophils 0.3 % (0-2); % Eosinophils 0.7 % (0-6); % Immature Granulocytes 7.7 % (0-0.5); % Lymphocytes 9.2 % (20.5-51.1); % Monocytes 9.8 % (1.7-9.3); % Neutrophils 72.3 % (42.2-75.2); Absolute Eosinophils 0.1 10^3/uL (0-0.7); Absolute Immature Granulocytes 0.8 10^3/uL (0-0.05); Absolute Lymphocytes 0.9 10^3/uL (1.2-3.4); Absolute Neutrophils 7.4 10^3/uL (1.4-6.5); Hematocrit 26.6 % (37.0-47.0); Hemoglobin 8.8 g/dL (12.0-16.0); Mean Corp Hgb Conc. 33.1 g/dL (33.0-37.0); Mean Corpuscular Volume 90.8 fL (81.0-99.0); Mean Platelet Volume 11.2 fL (7.4-10.4); Nucleated Red Blood Cells % 0 %; Platelet Count 196 10^3/uL (130-400); Red Blood Cell Count 2.93 10^6/uL (4.20-5.40); Red Cell Dist. Width 16.1 % (11.5-14.5); White Blood Cell Count 10.2 10^3/uL (4.8-10.8)
[2023-10-08] MEDS: OSCAL 500 + D 500 MG PO (08:39)
[2023-10-08] MEDS: VITAMIN D3 (cholecalciferol) 125 MCG PO (08:39)
[2023-10-08] MEDS: TOPROL XL 100 MG PO (08:39)
[2023-10-08] MEDS: OCUVITE SOFTGEL 1 CAP PO (08:39)
[2023-10-08] MEDS: ZOVIRAX 400 MG PO (08:40)
[2023-10-08] MEDS: FEOSOL 325 MG PO (08:40)
[2023-10-08] MEDS: ELIQUIS 5 MG PO (08:40)
[2023-10-08] MEDS: GLUCOPHAGE 500 MG PO (08:40)
[2023-10-08 08:45] LABS: ALT (SGPT) 39 U/L (0-35); AST (SGOT) 42 U/L (14-36); Albumin 2.6 g/dl (3.5-5.0); Alkaline Phosphatase 29 U/L (38-126); Blood Urea Nitrogen 21 mg/dl (7-17); Calcium 8.7 mg/dl (8.4-10.2); Carbon Dioxide 30 mmol/L (22-30); Chloride 99 mmol/L (98-107); Estimated Creatinine Clearance 59 ml/min; Glucose 126 mg/dl (70-99); Sodium 134 mmol/L (135-145); Total Bilirubin 0.6 mg/dl (0.2-1.3); Total Protein 5.6 g/dl (6.3-8.2); eGFR > 60.00
[2023-10-08] MEDS: SYMBICORT 80/4.5 MCG INHALER 2 PUFF INH (08:47)
[2023-10-08] MEDS: SPIRIVA RESPIMAT 2.5 MCG 2 PUFF INH (08:47)
[2023-10-08] MEDS: NOVOLOG FLEXPEN-MODERATE RESISTANCE 1 UNITS SC (09:15)
--- NOTE | 2023-10-08 09:56 | W.PN.HOSP.TC ---
Addendum entered and electronically signed by Cruz Thao DO 10/08/23 13:37:
Ambulatory pulse ox on room air normal, 92%. Does not qualify for home oxygen.
Discussed with patient she is medically stable for discharge.
Will send prescription for outpatient antibiotics to [facility].
Follow-up with PCP within 1 week.
Original Note:
Today's Communication/Plan
-
Ambulatory pulse ox room air
Assessment / Plan
Assessment / Plan
Gen-AAOx3, NAD
HEENT-NC, AT, anicteric, clear oral mm
Neck-supple
CV-reg, no M, +S1/S2
Lungs-decreased breath sounds bilaterally
Abd-soft, NT, ND
Ext-no edema
Musculoskeletal-no cyanosis, clubbing
Skin-warm and dry
Neuro-grossly non-focal
Psych-calm, cooperative
#Acute hypoxic respiratory insufficiency -2/2 left midlung pneumonia. Oxygenation improved, now on 1 L nasal cannula. Check ambulatory pulse ox on room air.
Community-acquired pneumonia -in the setting of immunosuppression. Chest x-ray with left-sided infiltrates. Reviewed by myself. Improving clinically, white blood cell count normal, afebrile.
#COPD without exacerbation
# Former smoker
1/2 pack a day x 30 years
No need for systemic steroids at the moment but continue to monitor.
#Hyponatremia hypovolemic -improving, sodium 134 today.
-Check TSH with free T4 reflex--> TSH 0.30 but normal free T4 1.49. Recommend repeat in 6 weeks
-Urine NA, urine Osmo, serum Osmo--> urine sodium 44, urine osmolality 458
-IV NSS 1 L given.
-Cont fluid restriction
#Multiple myeloma on current chemo Dx August 2022
# Acute on chronic anemia normocytic -hemoglobin 8.8 today. No evidence of bleeding. Etiology of acute anemia unclear but differential includes hemodilution from IV fluids, blood draws, etc.
Follows with [facility]
Patient on chemo Velcade once a week last dose 10/03/2023
#DVT left leg hx July 2022
-Continue Eliquis 5 mg twice daily
#ASHLEY on CPAP nasal
Patient unsure setting
Essential hypertension
Blood pressure stable
-Continue irbesartan 300 mg every afternoon, metoprolol succinate 100 mg daily
-Hold Lasix 20 mg daily but can restart in the next day or 2.
Hyperlipidemia
-Continue Lipitor 10 mg at bedtime
DM2 without hyperglycemia glucose 126 this morning. -
-Accu-Cheks with SSI--> increased sliding scale to moderate resistance, check HgbA1c--> 6.9
Continue metformin 500 mg twice daily
Hx Right breast CA with lumpectomy
-Continue anastrozole 1 mg p.o. at bedtime
#Osteoporosis Hx
Patient is on ibandronate 150 mg p.o. monthly on the
Continue calcium 600 vitamin D, continue vitamin D3
-Patient on Xgeva/denosumab once a month
DVT prophylaxis
Continue RADIO COMMENTATOR Eliquis
Full code
Dispo -check ambulatory pulse ox on room air. Potential discharge either today or tomorrow morning.
Anticipated Discharge: Within 24 hours
Subjective/Interval History
-
Date of Service: October 08, 2023
Patient seen and examined. Complaining of inability to take a deep breath. Denies shortness of breath.
Objective Data
-
Labs:
Laboratory Results
10/08/23
07:44
WBC 10.2
Hgb 8.8 L
Hct 26.6 L
Plt Count 196 D
Sodium 134 L
Potassium 4.0
Chloride 99
Carbon Dioxide 30
BUN 21 H
Creatinine 0.6
Glucose 126 H
Calcium 8.7
Total Bilirubin 0.6
AST 42 H
ALT 39 H
Alkaline Phosphatase 29 L
Vital Signs:
Vital Signs
Temp Pulse Resp BP Pulse Ox
98.6 F 66 16 148/79 95
10/08/23 07:48 10/08/23 08:57 10/08/23 08:57 10/08/23 07:48 10/08/23 08:57
I&O
10/07/23 10/08/23 10/09/23
06:59 06:59 06:59
Intake Total 960 / 960 700 / 700
Output Total 1100 / 1100 300 / 300
Balance -140 / -140 400 / 400
Review of Systems
-
History Source: Patient
All other systems: Reviewed and negative
[2023-10-08 11:14] VITALS: O2SAT 92
[2023-10-08 11:53] LABS: Glucose - Point of Care 230 mg/dl (70-99)
[2023-10-08 12:21] LABS: Glucose - Point of Care 209 mg/dl (70-99)
[2023-10-08] MEDS: NOVOLOG FLEXPEN-MODERATE RESISTANCE 2 UNITS SC (12:22)
--- NOTE | 2023-10-08 13:43 | W.DS.TRANS ---
DC Summary - Family Psychologist
-
Discharge Instructions:
Discharge Diagnosis/Procedures Community-acquired pneumonia
Diet Low Cholesterol,Restrict fluids to 48 oz
Activity As tolerated
Driving Restrictions As prior to admission
Bathing Restrictions None
Instructions:
Stand-Alone Forms:
Changes to Home Medications: No
Discharge Medications:
DC Medications w/original date entered in [facility]
anastrozole 1 mg tablet 1 mg PO HS Cancer 01/07/21
atorvastatin 10 mg tablet (Lipitor) 10 mg PO HS High cholesterol 01/07/21
metformin 500 mg tablet 500 mg PO BID Diabetes 01/07/21
cyanocobalamin (vitamin B-12) 1,000 mcg tablet 1,000 mcg PO SUTUTHSA Supplement 01/18/21
fish oil-dha-epa 1,200 mg-144 mg-216 mg capsule 2 capsules PO DAILY Supplement 09/18/21
fluticasone fur. 100 mcg-umeclid 62.5 mcg-vilant 25 mcg inhalat.powder (Trelegy Ellipta) 1 ea IH DAILY Lung/breathing issues 09/18/21
furosemide 20 mg tablet 20 mg PO DAILY #30 tabs 09/20/21
irbesartan 300 mg tablet 300 mg PO QPM #30 tabs 09/20/21
albuterol sulfate 90 mcg/actuation breath activated powder inhaler,sensor 90 mcg inhalation Q4H PRN sob/wheezing 03/01/23
apixaban 5 mg tablet (Eliquis) 5 mg PO BID 03/01/23
ibandronate 150 mg tablet 150 mg PO QMONTH 03/01/23
metoprolol succinate 100 mg capsule sprinkle, ext. release 24 hr 100 mg PO DAILY 03/01/23
acyclovir 400 mg tablet 400 mg PO BID 04/13/23
dexamethasone 2 mg tablet 10 mg PO .Sunday04/13/23
iron 65 mg PO DAILY 04/13/23
Calcium 600 with Vitamin D2 1 tab PO DAILY 10/05/23
Vitamin D3 5,000 units PO DAILY 10/05/23
bortezomib 3.5 mg injection powder for solution (Velcade) 3 mg IV QWEEK 10/05/23
denosumab 120 mg/1.7 mL (70 mg/mL) subcutaneous solution (Xgeva) 120 mg SC Q4W 10/05/23
amoxicillin 875 mg-potassium clavulanate 125 mg tablet 1 tab PO Q12H #8 tabs 10/08/23
Home Medication Changes
Pending Results: No
[2023-10-08 14:00] VITALS: BP 136/80
== END 2023-10-08 14:39 | disposition home or self-care (01) | DRG 194 ==
LOC: 4 WEST ACU 22:58
PROVIDERS: Clinical Nurse Specialist Family Health; Emergency Medicine; ADMITTING PHYSICIAN Internal Medicine; ATTENDING PHYSICIAN Hospitalist; EMERGENCY PHYSICIAN Emergency Medicine; FAMILY PHYSICIAN Physician Assistant Medical
DX: J18.9 Pneumonia, unspecified organism (principal); C90.00 Multiple myeloma not having achieved remission; E87.1 Hypo-osmolality and hyponatremia; J44.0 Chronic obstructive pulmonary disease with (acute) lower respiratory infection; Z87.891 Personal history of nicotine dependence; R09.02 Hypoxemia; R06.89 Other abnormalities of breathing; E86.1 Hypovolemia; G47.33 Obstructive sleep apnea (adult) (pediatric); I10 Essential (primary) hypertension; E78.00 Pure hypercholesterolemia, unspecified; E11.9 Type 2 diabetes mellitus without complications; C50.911 Malignant neoplasm of unspecified site of right female breast; Z11.52 Encounter for screening for COVID-19
CPT/HCPCS: 71045; 80053; 82962; 83036; 83605; 83930; 83935; 84145; 84300; 84439; 84443; 84484; 85025; 85610; 87040; 87502; 87811; 93005; 94640; 94761; 96365; 96375; 97162; 97166; 99291

== ENCOUNTER → 2023-11-13 14:59 | Outpatient (REF) | payer MEDICARE, SELFPAY | LOC: RAD 14:59 | PROVIDERS: ATTENDING PHYSICIAN Nurse Practitioner Family; FAMILY PHYSICIAN Physician Assistant Medical | DX: D64.9 Anemia, unspecified (principal); I82.401 Acute embolism and thrombosis of unspecified deep veins of right lower extremity; M80.00XA Age-related osteoporosis with current pathological fracture, unspecified site, initial encounter for fracture; C90.00 Multiple myeloma not having achieved remission; R06.00 Dyspnea, unspecified | CPT/HCPCS: 73502; 73552 ==

== ENCOUNTER → 2023-11-14 13:09 | Outpatient (REF) | payer MEDICARE, SELFPAY | LOC: RAD 13:09 | PROVIDERS: ATTENDING PHYSICIAN Internal Medicine Hematology & Oncology; FAMILY PHYSICIAN Physician Assistant Medical | DX: M79.604 Pain in right leg (principal); D64.9 Anemia, unspecified; I82.401 Acute embolism and thrombosis of unspecified deep veins of right lower extremity | CPT/HCPCS: 93971 ==

== ENCOUNTER → 2023-12-03 16:24 | Outpatient (REF) | payer MEDICARE, SELFPAY | LOC: HWWDC 16:24 | PROVIDERS: ATTENDING PHYSICIAN Physician Assistant Medical | DX: Z12.31 Encounter for screening mammogram for malignant neoplasm of breast (principal) | CPT/HCPCS: 77063; 77067 ==

== ENCOUNTER → 2023-12-12 16:41 | Outpatient (REF) | payer MEDICARE, SELFPAY | LOC: HWRAD 16:41 | PROVIDERS: ATTENDING PHYSICIAN Nurse Practitioner Family; FAMILY PHYSICIAN Physician Assistant Medical | DX: Z87.01 Personal history of pneumonia (recurrent) (principal) | CPT/HCPCS: 71046 ==

== ENCOUNTER → 2023-12-14 09:42 | Outpatient (REF) | payer MEDICARE, SELFPAY ==
[2023-12-14 10:39] LABS: % Basophils 0.6 % (0-2); % Eosinophils 1.3 % (0-6); % Immature Granulocytes 0.6 % (0-0.5); % Monocytes 9.8 % (1.7-9.3); % Neutrophils 70.7 % (42.2-75.2); Absolute Basophils 0.1 10^3/uL (0-0.2); Absolute Eosinophils 0.1 10^3/uL (0-0.7); Absolute Immature Granulocytes 0.1 10^3/uL (0-0.05); Absolute Lymphocytes 1.4 10^3/uL (1.2-3.4); Absolute Monocytes 0.8 10^3/uL (0.1-0.6); Absolute Neutrophils 5.8 10^3/uL (1.4-6.5); Hematocrit 29.1 % (37.0-47.0); Hemoglobin 9.4 g/dL (12.0-16.0); Mean Corp Hgb Conc. 32.3 g/dL (33.0-37.0); Mean Corpuscular Hgb 31.2 pg (27.0-31.0); Mean Corpuscular Volume 96.7 fL (81.0-99.0); Mean Platelet Volume 10.2 fL (7.4-10.4); Nucleated Red Blood Cells % 0 %; Platelet Count 268 10^3/uL (130-400); Red Blood Cell Count 3.01 10^6/uL (4.20-5.40); Red Cell Dist. Width 16.9 % (11.5-14.5); White Blood Cell Count 8.3 10^3/uL (4.8-10.8)
[2023-12-14 11:10] LABS: ALT (SGPT) 13 U/L (0-35); AST (SGOT) 20 U/L (14-36); Albumin 3.5 g/dl (3.5-5.0); Alkaline Phosphatase 37 U/L (38-126); Blood Urea Nitrogen 18 mg/dl (7-17); Carbon Dioxide 25 mmol/L (22-30); Chloride 99 mmol/L (98-107); Glucose 247 mg/dl (70-99); Potassium 4.7 mmol/L (3.5-5.1); Sodium 132 mmol/L (135-145); Total Bilirubin 0.6 mg/dl (0.2-1.3); Total Protein 6.8 g/dl (6.3-8.2); eGFR > 60.00
[2023-12-14 11:41] LABS: Hepatitis B Surface Antigen Negative (Negative)
[2023-12-14 11:59] LABS: Hepatitis B Core Ab, Total Negative (Negative); Hepatitis B Surface Antibody Negative
== END ==
LOC: REG 09:42
PROVIDERS: ATTENDING PHYSICIAN Internal Medicine Hematology & Oncology; FAMILY PHYSICIAN Physician Assistant Medical
DX: D64.9 Anemia, unspecified (principal); I82.401 Acute embolism and thrombosis of unspecified deep veins of right lower extremity; M80.00XA Age-related osteoporosis with current pathological fracture, unspecified site, initial encounter for fracture; C90.00 Multiple myeloma not having achieved remission; R06.00 Dyspnea, unspecified; M25.551 Pain in right hip; M79.604 Pain in right leg; R26.89 Other abnormalities of gait and mobility; H00.015 Hordeolum externum left lower eyelid
CPT/HCPCS: 36415; 80053; 85025; 86704; 86706; 86850; 86900; 86901; 87340

== ENCOUNTER → 2023-12-24 07:14 | Outpatient (REF) | payer MEDICARE, SELFPAY ==
[2023-12-24 08:29] LABS: % Basophils 0.2 % (0-2); % Eosinophils 1.1 % (0-6); % Immature Granulocytes 0.4 % (0-0.5); % Lymphocytes 12.3 % (20.5-51.1); % Monocytes 8.8 % (1.7-9.3); % Neutrophils 77.2 % (42.2-75.2); Absolute Eosinophils 0.1 10^3/uL (0-0.7); Absolute Lymphocytes 0.7 10^3/uL (1.2-3.4); Absolute Monocytes 0.5 10^3/uL (0.1-0.6); Absolute Neutrophils 4.4 10^3/uL (1.4-6.5); Hemoglobin 9.5 g/dL (12.0-16.0); Mean Corp Hgb Conc. 32.8 g/dL (33.0-37.0); Mean Corpuscular Hgb 30.4 pg (27.0-31.0); Mean Corpuscular Volume 92.7 fL (81.0-99.0); Mean Platelet Volume 9.4 fL (7.4-10.4); Nucleated Red Blood Cells % 0 %; Platelet Count 250 10^3/uL (130-400); Red Blood Cell Count 3.13 10^6/uL (4.20-5.40); Red Cell Dist. Width 16.3 % (11.5-14.5); White Blood Cell Count 5.7 10^3/uL (4.8-10.8)
[2023-12-24 08:51] LABS: ALT (SGPT) 11 U/L (0-35); AST (SGOT) 18 U/L (14-36); Albumin 3.4 g/dl (3.5-5.0); Alkaline Phosphatase 37 U/L (38-126); Blood Urea Nitrogen 15 mg/dl (7-17); Calcium 9.5 mg/dl (8.4-10.2); Carbon Dioxide 31 mmol/L (22-30); Chloride 100 mmol/L (98-107); Glucose 119 mg/dl (70-99); Potassium 4.2 mmol/L (3.5-5.1); Sodium 133 mmol/L (135-145); Total Bilirubin 0.6 mg/dl (0.2-1.3); Total Protein 6.6 g/dl (6.3-8.2); eGFR > 60.00
== END ==
LOC: REG 07:14
PROVIDERS: ATTENDING PHYSICIAN Internal Medicine Hematology & Oncology; FAMILY PHYSICIAN Physician Assistant Medical
DX: D64.9 Anemia, unspecified (principal); I82.401 Acute embolism and thrombosis of unspecified deep veins of right lower extremity; M80.00XA Age-related osteoporosis with current pathological fracture, unspecified site, initial encounter for fracture; C90.00 Multiple myeloma not having achieved remission
CPT/HCPCS: 36415; 80053; 85025

== ENCOUNTER → 2024-01-15 10:59 | Outpatient (REF) | payer MEDICARE, SELFPAY ==
[2024-01-15 12:30] LABS: % Basophils 0.3 % (0-2); % Eosinophils 0.5 % (0-6); % Immature Granulocytes 0.3 % (0-0.5); % Lymphocytes 10.3 % (20.5-51.1); % Monocytes 8.9 % (1.7-9.3); % Neutrophils 79.7 % (42.2-75.2); Absolute Lymphocytes 0.7 10^3/uL (1.2-3.4); Absolute Monocytes 0.6 10^3/uL (0.1-0.6); Absolute Neutrophils 5.3 10^3/uL (1.4-6.5); Hematocrit 32.2 % (37.0-47.0); Hemoglobin 10.6 g/dL (12.0-16.0); Mean Corp Hgb Conc. 32.9 g/dL (33.0-37.0); Mean Corpuscular Hgb 30.4 pg (27.0-31.0); Mean Corpuscular Volume 92.3 fL (81.0-99.0); Nucleated Red Blood Cells % 0 %; Platelet Count 237 10^3/uL (130-400); Red Blood Cell Count 3.49 10^6/uL (4.20-5.40); Red Cell Dist. Width 15.7 % (11.5-14.5); White Blood Cell Count 6.6 10^3/uL (4.8-10.8)
[2024-01-15 13:35] LABS: ALT (SGPT) 16 U/L (0-35); AST (SGOT) 19 U/L (14-36); Albumin 3.6 g/dl (3.5-5.0); Alkaline Phosphatase 43 U/L (38-126); Blood Urea Nitrogen 16 mg/dl (7-17); Calcium 9.9 mg/dl (8.4-10.2); Carbon Dioxide 34 mmol/L (22-30); Chloride 95 mmol/L (98-107); Glucose 125 mg/dl (70-99); Potassium 4.2 mmol/L (3.5-5.1); Sodium 136 mmol/L (135-145); Total Bilirubin 0.6 mg/dl (0.2-1.3); Total Protein 6.6 g/dl (6.3-8.2); eGFR > 60.00
== END ==
LOC: REG 10:59
PROVIDERS: ATTENDING PHYSICIAN Internal Medicine Hematology & Oncology; FAMILY PHYSICIAN Physician Assistant Medical
DX: D64.9 Anemia, unspecified (principal); I82.401 Acute embolism and thrombosis of unspecified deep veins of right lower extremity; M80.00XA Age-related osteoporosis with current pathological fracture, unspecified site, initial encounter for fracture; C90.00 Multiple myeloma not having achieved remission
CPT/HCPCS: 36415; 80053; 85025

== ENCOUNTER → 2024-02-12 14:57 | Outpatient (REF) | payer MEDICARE, SELFPAY ==
[2024-02-12 16:19] LABS: % Basophils 1.2 % (0-2); % Eosinophils 2.3 % (0-6); % Immature Granulocytes 0.2 % (0-0.5); % Lymphocytes 15.1 % (20.5-51.1); % Monocytes 8.7 % (1.7-9.3); % Neutrophils 72.5 % (42.2-75.2); Absolute Basophils 0.1 10^3/uL (0-0.2); Absolute Eosinophils 0.1 10^3/uL (0-0.7); Absolute Lymphocytes 0.8 10^3/uL (1.2-3.4); Absolute Monocytes 0.5 10^3/uL (0.1-0.6); Absolute Neutrophils 3.8 10^3/uL (1.4-6.5); Hematocrit 32.8 % (37.0-47.0); Hemoglobin 10.8 g/dL (12.0-16.0); Mean Corp Hgb Conc. 32.9 g/dL (33.0-37.0); Mean Corpuscular Hgb 29.9 pg (27.0-31.0); Mean Corpuscular Volume 90.9 fL (81.0-99.0); Mean Platelet Volume 9.6 fL (7.4-10.4); Nucleated Red Blood Cells % 0 %; Platelet Count 217 10^3/uL (130-400); Red Blood Cell Count 3.61 10^6/uL (4.20-5.40); Red Cell Dist. Width 15.4 % (11.5-14.5); White Blood Cell Count 5.2 10^3/uL (4.8-10.8)
[2024-02-12 16:42] LABS: ALT (SGPT) 19 U/L (0-35); AST (SGOT) 18 U/L (14-36); Albumin 3.5 g/dl (3.5-5.0); Alkaline Phosphatase 37 U/L (38-126); Blood Urea Nitrogen 12 mg/dl (7-17); Calcium 9.4 mg/dl (8.4-10.2); Carbon Dioxide 29 mmol/L (22-30); Chloride 95 mmol/L (98-107); Glucose 170 mg/dl (70-99); Potassium 3.7 mmol/L (3.5-5.1); Sodium 136 mmol/L (135-145); Total Bilirubin 0.6 mg/dl (0.2-1.3); Total Protein 5.8 g/dl (6.3-8.2); eGFR > 60.00
== END ==
LOC: REG 14:57
PROVIDERS: ATTENDING PHYSICIAN Internal Medicine Hematology & Oncology; FAMILY PHYSICIAN Physician Assistant Medical
DX: C90.00 Multiple myeloma not having achieved remission (principal); M80.00XA Age-related osteoporosis with current pathological fracture, unspecified site, initial encounter for fracture; I82.401 Acute embolism and thrombosis of unspecified deep veins of right lower extremity; D64.9 Anemia, unspecified
CPT/HCPCS: 36415; 80053; 85025

== ENCOUNTER → 2024-02-18 12:21 | Outpatient (REF) | payer MEDICARE, SELFPAY ==
[2024-02-18 12:57] LABS: % Basophils 0.7 % (0-2); % Eosinophils 2.1 % (0-6); % Immature Granulocytes 0.4 % (0-0.5); % Lymphocytes 13.8 % (20.5-51.1); % Monocytes 17.2 % (1.7-9.3); % Neutrophils 65.8 % (42.2-75.2); Absolute Basophils 0.1 10^3/uL (0-0.2); Absolute Eosinophils 0.1 10^3/uL (0-0.7); Absolute Lymphocytes 0.9 10^3/uL (1.2-3.4); Absolute Monocytes 1.2 10^3/uL (0.1-0.6); Absolute Neutrophils 4.4 10^3/uL (1.4-6.5); Hemoglobin 10.9 g/dL (12.0-16.0); Mean Corpuscular Hgb 30.3 pg (27.0-31.0); Mean Corpuscular Volume 91.7 fL (81.0-99.0); Nucleated Red Blood Cells % 0 %; Platelet Count 209 10^3/uL (130-400); Red Cell Dist. Width 15.3 % (11.5-14.5); White Blood Cell Count 6.7 10^3/uL (4.8-10.8)
[2024-02-18 13:28] LABS: AST (SGOT) 17 U/L (14-36); Albumin 3.5 g/dl (3.5-5.0); Alkaline Phosphatase 32 U/L (38-126); Blood Urea Nitrogen 15 mg/dl (7-17); Calcium 9.2 mg/dl (8.4-10.2); Carbon Dioxide 30 mmol/L (22-30); Chloride 97 mmol/L (98-107); Glucose 150 mg/dl (70-99); Potassium 4.6 mmol/L (3.5-5.1); Sodium 135 mmol/L (135-145); Total Bilirubin 0.5 mg/dl (0.2-1.3); Total Protein 5.7 g/dl (6.3-8.2); eGFR > 60.00
[2024-02-18 13:37] LABS: ALT (SGPT) 18 U/L (0-35)
== END ==
LOC: REG 12:21
PROVIDERS: ATTENDING PHYSICIAN Internal Medicine Hematology & Oncology; REFERRING PHYSICIAN Nurse Practitioner Family
DX: D64.9 Anemia, unspecified (principal); I82.401 Acute embolism and thrombosis of unspecified deep veins of right lower extremity; M80.00XA Age-related osteoporosis with current pathological fracture, unspecified site, initial encounter for fracture; C90.00 Multiple myeloma not having achieved remission; R06.00 Dyspnea, unspecified
CPT/HCPCS: 36415; 80053; 82784; 83521; 84155; 84165; 85025; 86334

== ENCOUNTER → 2024-02-26 14:56 | Outpatient (REF) | payer MEDICARE, SELFPAY ==
[2024-02-26 16:22] LABS: % Basophils 0.8 % (0-2); % Eosinophils 2.2 % (0-6); % Immature Granulocytes 0.5 % (0-0.5); % Lymphocytes 13.8 % (20.5-51.1); % Monocytes 14.9 % (1.7-9.3); % Neutrophils 67.8 % (42.2-75.2); Absolute Basophils 0.1 10^3/uL (0-0.2); Absolute Eosinophils 0.1 10^3/uL (0-0.7); Absolute Lymphocytes 0.9 10^3/uL (1.2-3.4); Absolute Monocytes 0.9 10^3/uL (0.1-0.6); Absolute Neutrophils 4.2 10^3/uL (1.4-6.5); Hematocrit 36.1 % (37.0-47.0); Hemoglobin 12.1 g/dL (12.0-16.0); Mean Corp Hgb Conc. 33.5 g/dL (33.0-37.0); Mean Corpuscular Volume 92.6 fL (81.0-99.0); Mean Platelet Volume 10.2 fL (7.4-10.4); Nucleated Red Blood Cells % 0 %; Platelet Count 237 10^3/uL (130-400); Red Cell Dist. Width 15.7 % (11.5-14.5); White Blood Cell Count 6.2 10^3/uL (4.8-10.8)
[2024-02-26 16:53] LABS: ALT (SGPT) 23 U/L (0-35); AST (SGOT) 20 U/L (14-36); Albumin 3.7 g/dl (3.5-5.0); Alkaline Phosphatase 32 U/L (38-126); Blood Urea Nitrogen 16 mg/dl (7-17); Calcium 8.8 mg/dl (8.4-10.2); Carbon Dioxide 30 mmol/L (22-30); Chloride 96 mmol/L (98-107); Glucose 182 mg/dl (70-99); Potassium 3.5 mmol/L (3.5-5.1); Sodium 135 mmol/L (135-145); Total Bilirubin 0.5 mg/dl (0.2-1.3); Total Protein 5.9 g/dl (6.3-8.2); eGFR > 60.00
== END ==
LOC: REG 14:56
PROVIDERS: ATTENDING PHYSICIAN Internal Medicine Hematology & Oncology; FAMILY PHYSICIAN Physician Assistant Medical
DX: D64.9 Anemia, unspecified (principal); I82.401 Acute embolism and thrombosis of unspecified deep veins of right lower extremity; M80.00XA Age-related osteoporosis with current pathological fracture, unspecified site, initial encounter for fracture; C90.00 Multiple myeloma not having achieved remission
CPT/HCPCS: 36415; 80053; 85025

== ENCOUNTER → 2024-03-03 15:53 | Outpatient (REF) | payer MEDICARE, SELFPAY ==
[2024-03-03 18:23] LABS: % Basophils 1.3 % (0-2); % Eosinophils 5.5 % (0-6); % Immature Granulocytes 0.5 % (0-0.5); % Lymphocytes 16.2 % (20.5-51.1); % Monocytes 17.4 % (1.7-9.3); % Neutrophils 59.1 % (42.2-75.2); Absolute Basophils 0.1 10^3/uL (0-0.2); Absolute Eosinophils 0.4 10^3/uL (0-0.7); Absolute Monocytes 1.1 10^3/uL (0.1-0.6); Absolute Neutrophils 3.7 10^3/uL (1.4-6.5); Hematocrit 34.5 % (37.0-47.0); Hemoglobin 11.3 g/dL (12.0-16.0); Mean Corp Hgb Conc. 32.8 g/dL (33.0-37.0); Mean Corpuscular Volume 91.5 fL (81.0-99.0); Nucleated Red Blood Cells % 0 %; Platelet Count 217 10^3/uL (130-400); Red Blood Cell Count 3.77 10^6/uL (4.20-5.40); Red Cell Dist. Width 15.8 % (11.5-14.5); White Blood Cell Count 6.3 10^3/uL (4.8-10.8)
[2024-03-03 18:44] LABS: ALT (SGPT) 19 U/L (0-35); AST (SGOT) 20 U/L (14-36); Albumin 3.7 g/dl (3.5-5.0); Alkaline Phosphatase 33 U/L (38-126); Blood Urea Nitrogen 12 mg/dl (7-17); Calcium 9.8 mg/dl (8.4-10.2); Carbon Dioxide 29 mmol/L (22-30); Chloride 98 mmol/L (98-107); Glucose 78 mg/dl (70-99); HDL Cholesterol 79 mg/dl; LDL Cholesterol, Calculated 50 mg/dl; Potassium 4.8 mmol/L (3.5-5.1); Sodium 138 mmol/L (135-145); Total Bilirubin 0.5 mg/dl (0.2-1.3); Total Cholesterol 149 mg/dl (50-199); Total Protein 5.9 g/dl (6.3-8.2); Triglyceride 104 mg/dl (10-149); Very Low Density Lipoprotein 20 mg/dl (0-30); eGFR > 60.00
[2024-03-03 19:15] LABS: TSH Reflex To Free T4 0.49 uIU/ml (0.47-4.68)
[2024-03-04 10:32] LABS: Glycohemoglobin (HgbA1c) 6.8 % (4.0-5.6)
== END ==
LOC: REG 15:53
PROVIDERS: ATTENDING PHYSICIAN Internal Medicine Hematology & Oncology; FAMILY PHYSICIAN Physician Assistant Medical
DX: D64.9 Anemia, unspecified (principal); I82.401 Acute embolism and thrombosis of unspecified deep veins of right lower extremity; M80.00XA Age-related osteoporosis with current pathological fracture, unspecified site, initial encounter for fracture; C90.00 Multiple myeloma not having achieved remission; E11.65 Type 2 diabetes mellitus with hyperglycemia; E78.5 Hyperlipidemia, unspecified; I10 Essential (primary) hypertension
CPT/HCPCS: 36415; 80053; 80061; 83036; 84443; 85025

== ENCOUNTER → 2024-03-17 13:47 | Outpatient (REF) | payer MEDICARE, SELFPAY ==
[2024-03-17 14:21] LABS: % Basophils 0.5 % (0-2); % Eosinophils 2.7 % (0-6); % Immature Granulocytes 0.6 % (0-0.5); % Neutrophils 70.2 % (42.2-75.2); Absolute Eosinophils 0.2 10^3/uL (0-0.7); Absolute Immature Granulocytes 0.1 10^3/uL (0-0.05); Absolute Lymphocytes 0.9 10^3/uL (1.2-3.4); Absolute Monocytes 1.2 10^3/uL (0.1-0.6); Absolute Neutrophils 5.8 10^3/uL (1.4-6.5); Hematocrit 34.3 % (37.0-47.0); Hemoglobin 11.3 g/dL (12.0-16.0); Mean Corp Hgb Conc. 32.9 g/dL (33.0-37.0); Mean Corpuscular Hgb 30.1 pg (27.0-31.0); Mean Corpuscular Volume 91.5 fL (81.0-99.0); Mean Platelet Volume 9.4 fL (7.4-10.4); Nucleated Red Blood Cells % 0 %; Platelet Count 267 10^3/uL (130-400); Red Blood Cell Count 3.75 10^6/uL (4.20-5.40); Red Cell Dist. Width 15.6 % (11.5-14.5); White Blood Cell Count 8.3 10^3/uL (4.8-10.8)
== END ==
LOC: REG 13:47
PROVIDERS: ATTENDING PHYSICIAN Internal Medicine Hematology & Oncology; FAMILY PHYSICIAN Physician Assistant Medical
DX: D64.9 Anemia, unspecified (principal); I82.401 Acute embolism and thrombosis of unspecified deep veins of right lower extremity; M80.00XA Age-related osteoporosis with current pathological fracture, unspecified site, initial encounter for fracture; C90.00 Multiple myeloma not having achieved remission; R06.00 Dyspnea, unspecified; M25.551 Pain in right hip; M79.604 Pain in right leg; R26.89 Other abnormalities of gait and mobility; H00.015 Hordeolum externum left lower eyelid
CPT/HCPCS: 36415; 82784; 83521; 84155; 84165; 85025; 86334

== ENCOUNTER → 2024-06-02 13:49 | Outpatient (REF) | payer MEDICARE, SELFPAY ==
[2024-06-02 14:56] LABS: % Basophils 0.7 % (0-2); % Eosinophils 3.4 % (0-6); % Immature Granulocytes 0.4 % (0-0.5); % Lymphocytes 12.4 % (20.5-51.1); % Monocytes 6.9 % (1.7-9.3); % Neutrophils 76.2 % (42.2-75.2); Absolute Basophils 0.1 10^3/uL (0-0.2); Absolute Eosinophils 0.2 10^3/uL (0-0.7); Absolute Lymphocytes 0.9 10^3/uL (1.2-3.4); Absolute Monocytes 0.5 10^3/uL (0.1-0.6); Absolute Neutrophils 5.4 10^3/uL (1.4-6.5); Hematocrit 35.3 % (37.0-47.0); Hemoglobin 11.4 g/dL (12.0-16.0); Mean Corp Hgb Conc. 32.3 g/dL (33.0-37.0); Mean Corpuscular Hgb 30.8 pg (27.0-31.0); Mean Corpuscular Volume 95.4 fL (81.0-99.0); Mean Platelet Volume 10.1 fL (7.4-10.4); Nucleated Red Blood Cells % 0 %; Platelet Count 249 10^3/uL (130-400); Red Cell Dist. Width 16.9 % (11.5-14.5); White Blood Cell Count 7.1 10^3/uL (4.8-10.8)
[2024-06-02 15:17] LABS: ALT (SGPT) 104 U/L (0-35); AST (SGOT) 89 U/L (14-36); Albumin 3.7 g/dl (3.5-5.0); Alkaline Phosphatase 74 U/L (38-126); Blood Urea Nitrogen 11 mg/dl (7-17); Calcium 9.3 mg/dl (8.4-10.2); Carbon Dioxide 32 mmol/L (22-30); Chloride 96 mmol/L (98-107); Glucose 83 mg/dl (70-99); Potassium 4.1 mmol/L (3.5-5.1); Sodium 134 mmol/L (135-145); Total Bilirubin 0.9 mg/dl (0.2-1.3); Total Protein 5.8 g/dl (6.3-8.2); eGFR > 60.00
== END ==
LOC: REG 13:49
PROVIDERS: ATTENDING PHYSICIAN Internal Medicine Hematology & Oncology; FAMILY PHYSICIAN Physician Assistant Medical
DX: D64.9 Anemia, unspecified (principal); I82.401 Acute embolism and thrombosis of unspecified deep veins of right lower extremity; M80.00XA Age-related osteoporosis with current pathological fracture, unspecified site, initial encounter for fracture; C90.00 Multiple myeloma not having achieved remission; R06.00 Dyspnea, unspecified; M25.551 Pain in right hip; M79.604 Pain in right leg; R26.89 Other abnormalities of gait and mobility; H00.015 Hordeolum externum left lower eyelid
CPT/HCPCS: 36415; 80053; 85025

== ENCOUNTER → 2024-10-15 12:38 | Outpatient (REF) | payer MEDICARE, SELFPAY ==
[2024-10-15 13:15] LABS: % Basophils 0.7 % (0-2); % Eosinophils 0.4 % (0-6); % Immature Granulocytes 0.7 % (0-0.5); % Lymphocytes 6.2 % (20.5-51.1); % Monocytes 9.1 % (1.7-9.3); % Neutrophils 82.9 % (42.2-75.2); Absolute Basophils 0.1 10^3/uL (0-0.2); Absolute Immature Granulocytes 0.1 10^3/uL (0-0.05); Absolute Lymphocytes 0.4 10^3/uL (1.2-3.4); Absolute Monocytes 0.6 10^3/uL (0.1-0.6); Absolute Neutrophils 5.6 10^3/uL (1.4-6.5); Hematocrit 32.8 % (37.0-47.0); Hemoglobin 10.4 g/dL (12.0-16.0); Mean Corp Hgb Conc. 31.7 g/dL (33.0-37.0); Mean Corpuscular Hgb 30.6 pg (27.0-31.0); Mean Corpuscular Volume 96.5 fL (81.0-99.0); Mean Platelet Volume 9.2 fL (7.4-10.4); Nucleated Red Blood Cells % 0 %; Platelet Count 280 10^3/uL (130-400); Red Cell Dist. Width 16.3 % (11.5-14.5); White Blood Cell Count 6.8 10^3/uL (4.8-10.8)
[2024-10-15 14:28] LABS: ALT (SGPT) 11 U/L (0-35); AST (SGOT) 14 U/L (14-36); Albumin 3.5 g/dl (3.5-5.0); Alkaline Phosphatase 52 U/L (38-126); Blood Urea Nitrogen 13 mg/dl (7-17); Calcium 8.5 mg/dl (8.4-10.2); Carbon Dioxide 23 mmol/L (22-30); Chloride 105 mmol/L (98-107); Glucose 204 mg/dl (70-99); Potassium 4.6 mmol/L (3.5-5.1); Sodium 136 mmol/L (135-145); Total Protein 5.7 g/dl (6.3-8.2); eGFR > 60.00
== END ==
LOC: REG 12:38
PROVIDERS: ATTENDING PHYSICIAN Internal Medicine Hematology & Oncology; FAMILY PHYSICIAN Physician Assistant Medical
DX: M80.00XA Age-related osteoporosis with current pathological fracture, unspecified site, initial encounter for fracture (principal); I82.401 Acute embolism and thrombosis of unspecified deep veins of right lower extremity; D64.9 Anemia, unspecified; C90.00 Multiple myeloma not having achieved remission; R06.00 Dyspnea, unspecified; M25.551 Pain in right hip; M79.604 Pain in right leg; R26.89 Other abnormalities of gait and mobility; H00.015 Hordeolum externum left lower eyelid
CPT/HCPCS: 36415; 80053; 82784; 83521; 84155; 84165; 85025; 86334

== ENCOUNTER → 2024-11-11 16:47 | Outpatient (REF) | payer MEDICARE, SELFPAY ==
[2024-11-11 17:43] LABS: ALT (SGPT) 10 U/L (0-35); AST (SGOT) 14 U/L (14-36); Albumin 3.4 g/dl (3.5-5.0); Alkaline Phosphatase 34 U/L (38-126); Blood Urea Nitrogen 17 mg/dl (7-17); Calcium 8.5 mg/dl (8.4-10.2); Carbon Dioxide 27 mmol/L (22-30); Chloride 105 mmol/L (98-107); Glucose 95 mg/dl (70-99); Potassium 3.9 mmol/L (3.5-5.1); Sodium 138 mmol/L (135-145); Total Protein 5.5 g/dl (6.3-8.2); eGFR > 60.00
[2024-11-11 17:49] LABS: Hematocrit 33.0 % (37.0-47.0); Hemoglobin 10.3 g/dL (12.0-16.0); Mean Corp Hgb Conc. 31.2 g/dL (33.0-37.0); Mean Corpuscular Volume 95.4 fL (81.0-99.0); Platelet Count 221 10^3/uL (130-400); Red Cell Dist. Width 16.2 % (11.5-14.5)
[2024-11-11 17:50] LABS: Absolute Neutrophils -Man Diff 3.0 10^3/uL (1.4-6.5)
[2024-11-11 17:51] LABS: Anisocytosis 1+; Macrocytosis 1+; Normal RBC Morphology No; Platelets Checked Yes
[2024-11-11 17:52] LABS: Ovalocytes 1+
[2024-11-11 17:53] LABS: Hypochromasia 1+; Total Cells Counted 100
== END ==
LOC: REG 16:47
PROVIDERS: ATTENDING PHYSICIAN Internal Medicine Hematology & Oncology; FAMILY PHYSICIAN Physician Assistant Medical
DX: I82.401 Acute embolism and thrombosis of unspecified deep veins of right lower extremity (principal); D64.9 Anemia, unspecified; M80.00XA Age-related osteoporosis with current pathological fracture, unspecified site, initial encounter for fracture; C90.00 Multiple myeloma not having achieved remission; R06.00 Dyspnea, unspecified; M25.551 Pain in right hip; M79.604 Pain in right leg; R26.89 Other abnormalities of gait and mobility; H00.015 Hordeolum externum left lower eyelid
CPT/HCPCS: 36415; 80053; 82784; 83521; 84155; 84165; 85025; 86334

== ENCOUNTER → 2024-12-12 13:17 | Outpatient (REF) | payer MEDICARE, SELFPAY ==
[2024-12-12 13:59] LABS: Hematocrit 35.0 % (37.0-47.0); Hemoglobin 11.2 g/dL (12.0-16.0); Mean Corp Hgb Conc. 32.0 g/dL (33.0-37.0); Mean Corpuscular Volume 93.1 fL (81.0-99.0); Nucleated Red Blood Cells % 0 %; Platelet Count 189 10^3/uL (130-400); Red Cell Dist. Width 17.2 % (11.5-14.5)
[2024-12-12 15:28] LABS: ALT (SGPT) 13 U/L (0-35); AST (SGOT) 14 U/L (14-36); Albumin 3.8 g/dl (3.5-5.0); Alkaline Phosphatase 28 U/L (38-126); Blood Urea Nitrogen 25 mg/dl (7-17); Calcium 9.1 mg/dl (8.4-10.2); Carbon Dioxide 23 mmol/L (22-30); Chloride 106 mmol/L (98-107); Glucose 67 mg/dl (70-99); Potassium 4.0 mmol/L (3.5-5.1); Sodium 136 mmol/L (135-145); Total Protein 5.9 g/dl (6.3-8.2); eGFR > 60.00
== END ==
LOC: REG 13:17
PROVIDERS: ATTENDING PHYSICIAN Internal Medicine Hematology & Oncology; FAMILY PHYSICIAN Physician Assistant Medical
DX: D64.9 Anemia, unspecified (principal); I82.401 Acute embolism and thrombosis of unspecified deep veins of right lower extremity; M80.00XA Age-related osteoporosis with current pathological fracture, unspecified site, initial encounter for fracture; C90.00 Multiple myeloma not having achieved remission; R06.00 Dyspnea, unspecified; M25.551 Pain in right hip; M79.604 Pain in right leg; R26.89 Other abnormalities of gait and mobility; H00.015 Hordeolum externum left lower eyelid
CPT/HCPCS: 36415; 80053; 82784; 83521; 84155; 84165; 85025; 86334

== ENCOUNTER → 2025-01-06 15:20 | Outpatient (REF) | payer MEDICARE, SELFPAY ==
[2025-01-06 16:12] LABS: Hematocrit 34.2 % (37.0-47.0); Hemoglobin 11.0 g/dL (12.0-16.0); Mean Corp Hgb Conc. 32.2 g/dL (33.0-37.0); Mean Corpuscular Volume 94.7 fL (81.0-99.0); Nucleated Red Blood Cells % 0 %; Platelet Count 186 10^3/uL (130-400); Red Cell Dist. Width 17.6 % (11.5-14.5)
[2025-01-06 16:45] LABS: ALT (SGPT) 13 U/L (0-35); AST (SGOT) 15 U/L (14-36); Albumin 3.6 g/dl (3.5-5.0); Alkaline Phosphatase 29 U/L (38-126); Blood Urea Nitrogen 13 mg/dl (7-17); Calcium 9.0 mg/dl (8.4-10.2); Carbon Dioxide 33 mmol/L (22-30); Chloride 103 mmol/L (98-107); Glucose 77 mg/dl (70-99); Potassium 4.4 mmol/L (3.5-5.1); Sodium 136 mmol/L (135-145); Total Protein 5.5 g/dl (6.3-8.2); eGFR > 60.00
== END ==
LOC: REG 15:20
PROVIDERS: ATTENDING PHYSICIAN Internal Medicine Hematology & Oncology; FAMILY PHYSICIAN Physician Assistant Medical
DX: D64.9 Anemia, unspecified (principal); I82.401 Acute embolism and thrombosis of unspecified deep veins of right lower extremity; M80.00XA Age-related osteoporosis with current pathological fracture, unspecified site, initial encounter for fracture; C90.00 Multiple myeloma not having achieved remission; R06.00 Dyspnea, unspecified; M25.551 Pain in right hip; M79.604 Pain in right leg; R26.89 Other abnormalities of gait and mobility; H00.015 Hordeolum externum left lower eyelid
CPT/HCPCS: 36415; 80053; 82784; 83521; 84155; 84165; 85025; 86334

== ENCOUNTER → 2025-02-04 12:42 | Outpatient (REF) | payer MEDICARE, SELFPAY ==
[2025-02-04 13:15] LABS: Hematocrit 35.2 % (37.0-47.0); Hemoglobin 11.4 g/dL (12.0-16.0); Mean Corp Hgb Conc. 32.4 g/dL (33.0-37.0); Mean Corpuscular Volume 94.6 fL (81.0-99.0); Nucleated Red Blood Cells % 0 %; Platelet Count 171 10^3/uL (130-400); Red Cell Dist. Width 17.5 % (11.5-14.5)
[2025-02-04 13:31] LABS: ALT (SGPT) 13 U/L (0-35); Alkaline Phosphatase 26 U/L (38-126); Blood Urea Nitrogen 17 mg/dl (7-17); Calcium 9.7 mg/dl (8.4-10.2); Carbon Dioxide 29 mmol/L (22-30); Chloride 104 mmol/L (98-107); Glucose 201 mg/dl (70-99); Potassium 4.1 mmol/L (3.5-5.1); Sodium 138 mmol/L (135-145); eGFR > 60.00
[2025-02-04 13:40] LABS: AST (SGOT) 14 U/L (14-36); Albumin 3.7 g/dl (3.5-5.0); Total Protein 5.8 g/dl (6.3-8.2)
== END ==
LOC: REG 12:42
PROVIDERS: ATTENDING PHYSICIAN Internal Medicine Hematology & Oncology; FAMILY PHYSICIAN Physician Assistant Medical
DX: D64.9 Anemia, unspecified (principal); I82.401 Acute embolism and thrombosis of unspecified deep veins of right lower extremity; M80.00XA Age-related osteoporosis with current pathological fracture, unspecified site, initial encounter for fracture; C90.00 Multiple myeloma not having achieved remission; R06.00 Dyspnea, unspecified; M25.511 Pain in right shoulder; M79.604 Pain in right leg; R26.89 Other abnormalities of gait and mobility; H00.015 Hordeolum externum left lower eyelid
CPT/HCPCS: 36415; 80053; 82784; 83521; 84155; 84165; 85025; 86146; 86334

== ENCOUNTER → 2025-03-04 14:23 | Outpatient (REF) | payer MEDICARE, SELFPAY ==
[2025-03-04 15:14] LABS: Hematocrit 35.8 % (37.0-47.0); Hemoglobin 11.7 g/dL (12.0-16.0); Mean Corp Hgb Conc. 32.7 g/dL (33.0-37.0); Mean Corpuscular Volume 98.9 fL (81.0-99.0); Nucleated Red Blood Cells % 0 %; Platelet Count 160 10^3/uL (130-400); Red Cell Dist. Width 16.2 % (11.5-14.5)
[2025-03-04 15:34] LABS: ALT (SGPT) 14 U/L (0-35); AST (SGOT) 14 U/L (14-36); Albumin 3.6 g/dl (3.5-5.0); Alkaline Phosphatase 32 U/L (38-126); Blood Urea Nitrogen 16 mg/dl (7-17); Calcium 8.7 mg/dl (8.4-10.2); Carbon Dioxide 28 mmol/L (22-30); Chloride 106 mmol/L (98-107); Glucose 131 mg/dl (70-99); Potassium 4.3 mmol/L (3.5-5.1); Sodium 134 mmol/L (135-145); Total Protein 5.7 g/dl (6.3-8.2); eGFR > 60.00
== END ==
LOC: REG 14:23
PROVIDERS: ATTENDING PHYSICIAN Internal Medicine Hematology & Oncology; FAMILY PHYSICIAN Physician Assistant Medical
DX: D64.9 Anemia, unspecified (principal); I82.401 Acute embolism and thrombosis of unspecified deep veins of right lower extremity; M80.00XA Age-related osteoporosis with current pathological fracture, unspecified site, initial encounter for fracture; C90.00 Multiple myeloma not having achieved remission; R06.00 Dyspnea, unspecified; M25.551 Pain in right hip; M79.604 Pain in right leg; R26.89 Other abnormalities of gait and mobility; H00.015 Hordeolum externum left lower eyelid
CPT/HCPCS: 36415; 80053; 82784; 83521; 84155; 84165; 85025; 86334

== ENCOUNTER → 2025-04-14 16:46 | Outpatient (REF) | payer MEDICARE, SELFPAY ==
[2025-04-14 18:09] LABS: Hematocrit 35.6 % (37.0-47.0); Hemoglobin 11.4 g/dL (12.0-16.0); Mean Corp Hgb Conc. 32.0 g/dL (33.0-37.0); Mean Corpuscular Volume 102.6 fL (81.0-99.0); Nucleated Red Blood Cells % 0 %; Platelet Count 147 10^3/uL (130-400); Red Cell Dist. Width 15.2 % (11.5-14.5)
[2025-04-14 18:26] LABS: ALT (SGPT) 15 U/L (0-35); AST (SGOT) 15 U/L (14-36); Albumin 3.6 g/dl (3.5-5.0); Alkaline Phosphatase 29 U/L (38-126); Blood Urea Nitrogen 14 mg/dl (7-17); Calcium 8.9 mg/dl (8.4-10.2); Carbon Dioxide 31 mmol/L (22-30); Chloride 104 mmol/L (98-107); Glucose 118 mg/dl (70-99); Potassium 3.4 mmol/L (3.5-5.1); Sodium 139 mmol/L (135-145); Total Protein 5.7 g/dl (6.3-8.2); eGFR > 60.00
== END ==
LOC: REG 16:46
PROVIDERS: ATTENDING PHYSICIAN Internal Medicine Hematology & Oncology; FAMILY PHYSICIAN Physician Assistant Medical
DX: D64.9 Anemia, unspecified (principal); I82.401 Acute embolism and thrombosis of unspecified deep veins of right lower extremity; M80.00XA Age-related osteoporosis with current pathological fracture, unspecified site, initial encounter for fracture; C90.00 Multiple myeloma not having achieved remission; R06.00 Dyspnea, unspecified; M25.551 Pain in right hip; R26.89 Other abnormalities of gait and mobility; H00.015 Hordeolum externum left lower eyelid
CPT/HCPCS: 36415; 80053; 82784; 83521; 84155; 84165; 85025; 86334

== ENCOUNTER → 2025-05-12 16:43 | Outpatient (REF) | payer MEDICARE, SELFPAY ==
[2025-05-12 17:39] LABS: Hematocrit 33.0 % (37.0-47.0); Hemoglobin 10.8 g/dL (12.0-16.0); Mean Corp Hgb Conc. 32.7 g/dL (33.0-37.0); Mean Corpuscular Volume 99.1 fL (81.0-99.0); Nucleated Red Blood Cells % 0 %; Platelet Count 126 10^3/uL (130-400); Red Cell Dist. Width 15.2 % (11.5-14.5)
[2025-05-12 17:58] LABS: ALT (SGPT) 17 U/L (0-35); AST (SGOT) 17 U/L (14-36); Albumin 3.8 g/dl (3.5-5.0); Alkaline Phosphatase 31 U/L (38-126); Blood Urea Nitrogen 18 mg/dl (7-17); Calcium 9.4 mg/dl (8.4-10.2); Carbon Dioxide 27 mmol/L (22-30); Chloride 100 mmol/L (98-107); Glucose 83 mg/dl (70-99); Potassium 3.5 mmol/L (3.5-5.1); Sodium 134 mmol/L (135-145); Total Protein 5.8 g/dl (6.3-8.2); eGFR > 60.00
== END ==
LOC: REG 16:43
PROVIDERS: ATTENDING PHYSICIAN Internal Medicine Hematology & Oncology; FAMILY PHYSICIAN Physician Assistant Medical
DX: D64.9 Anemia, unspecified (principal); I82.401 Acute embolism and thrombosis of unspecified deep veins of right lower extremity; M80.00XA Age-related osteoporosis with current pathological fracture, unspecified site, initial encounter for fracture; C90.00 Multiple myeloma not having achieved remission; R06.00 Dyspnea, unspecified; M25.551 Pain in right hip; M79.604 Pain in right leg; R26.89 Other abnormalities of gait and mobility; H00.015 Hordeolum externum left lower eyelid
CPT/HCPCS: 36415; 80053; 85025